=== PATIENT | female | born 1975 | race Caucasian/White ===

== ENCOUNTER 2016-12-20 13:04 | Emergency (ER) | payer MEDICAID ==
[2016-12-20 13:16] VITALS: BP 153/77
[2016-12-20] MEDS ORDERED: DEXAMETHASONE 10 MG/ML VIAL PO STA (13:51)
[2016-12-20] MEDS ORDERED: KETOROLAC 60 MG/2 ML VIAL IM STA (13:51)
[2016-12-20] MEDS ORDERED: KETOROLAC 60 MG/2 ML VIAL ONE (13:52)
[2016-12-20] MEDS ORDERED: DEXAMETHASONE 10 MG/ML VIAL ONE (13:52)
--- NOTE | 2016-12-20 13:55 | ED Physician Documentation ---
History of Present Illness - Stated complaint Stated Complaint: R ARM/ELBOW PX - Chief complaint Chief Complaint: Ext Problem - History obtained from History obtained from: Patient - History of Present Illness Timing: Other (intermittent for several months) Pain level max: 5 Pain level now: 3 Improved by: rest Worsened by: moving - Additonal information Additional information: Patient is a 41-year-old female who presents to the emergency department with right arm pain for the past few months. This is located in the elbow. Occasionally gets shooting pain down the arm. She states that her right pinky has been numb for several months and has had nerve conduction studies which have been normal. She tried to see her doctor today, but was unable to get in to be evaluated. She did take 1 oxycodone at home. Otherwise has not taken any medications for this. Denies any trauma. Denies any fevers. 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 - Present Medications Home Medications: Ambulatory Orders Medication Instructions Recorded Confirmed Ferrous Sulfate 325 mg PO DAILY 12/20/16 12/20/16 Ibuprofen [Motrin] 800 mg PO Q8H PRN #30 tablet 12/20/16 Levothyroxine [Synthroid] 75 mcg PO QDAC 12/20/16 12/20/16 Sertraline HCl [Zoloft] 150 mg PO DAILY 12/20/16 12/20/16 - Allergies Allergies/Adverse Reactions: Allergies Allergy/AdvReac Type Severity Reaction Status Date / Time No Known Drug Allergies Allergy Verified 12/20/16 13:16 - Social History Does the pt smoke?: No Smoking Status: Never smoker - Immunizations Immunizations are current?: Yes PD ED PE NORMAL - Vitals Vital signs reviewed: Yes - General General: Alert and oriented X 3, No acute distress - Derm Derm: Warm and dry - Extremities Extremities: Other (R elbow - No tenderness palpation on examination. She does have pain with flexion and extension as well as pronation and supination. Neurovascularly intact. No tenderness over the ulnar nerve. ) - Neuro Neuro: Alert and oriented X 3 - Psych Psych: Normal mood, Normal affect Results - Vitals Vitals: Vital Signs - 24 hr 12/20/16 13:13 Temperature 36.1 C L Heart Rate 109 H Respiratory 18 Rate Blood Pressure 153/77 H O2 Saturation 100 Oxygen O2 Source Room air PD MEDICAL DECISION MAKING - ED course Complexity details: considered differential, d/w patient ED course: Patient is a 41-year-old female with elbow pain of unclear etiology. Possible bursitis? Possible ulnar nerve entrapment? Will place on steroids and anti- inflammatories for home and have her follow-up with her doctor. Encouraged gentle stretching and range of motion to increase her range of motion as this could be contributing to her pain as well since she has not been using the arm much. Patient counseled regarding signs and symptoms for which I believe and urgent re-evaluation would be necessary. Patient with good understanding of and agreement to plan and is comfortable going home at this time This document was made in part using voice recognition software. While efforts are made to proofread this document, sound alike and grammatical errors may occur. Departure - Departure Disposition: 01 Home, Self Care Clinical Impression: Elbow pain, right Condition: Good Instructions: ED Bursitis Follow-Up: Ree Chan DO [Primary Care Provider] - Within 1 week Prescriptions: Ibuprofen [Motrin] 800 mg PO Q8H PRN #30 tablet PRN Reason: PAIN &/OR FEVER Comments: Return if you worsen. Continue to gently move your arm at home.
== END 2016-12-20 14:00 | disposition home or self-care (01) ==
LOC: ED 13:04
DX: M25.521 Pain in right elbow (principal); E03.9 Hypothyroidism, unspecified
CPT/HCPCS: 96372; 99283

== ENCOUNTER 2018-08-17 17:56 | Emergency (ER) | payer MEDICAID, OTHER ==
[2018-08-17 18:23] VITALS: BP 143/88
[2018-08-17] MEDS ORDERED: LIDOCAINE 1% 2 ML VIAL SUBQ ONE (18:49)
[2018-08-17] MEDS ORDERED: cefTRIAXone 250 MG VIAL IM STA (18:49)
[2018-08-17] MEDS ORDERED: AZITHROMYCIN 250 MG TABLET PO STA (18:49)
[2018-08-17] MEDS ORDERED: metroNIDAZOLE 250 MG TABLET PO STA (18:49)
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
[2018-08-19 10:56] LABS: HEPATITIS C ANTIBODY NON-REACTIVE (NON-REACTIVE)
[2018-08-19 13:07] LABS: HIV AG/AB 4TH GEN NON-REACTIVE (NON-REACTIVE)
== END 2018-08-17 20:35 | disposition home or self-care (01) ==
LOC: ED 17:56
DX: T74.21XA Adult sexual abuse, confirmed, initial encounter (principal); Y07.59 Other non-family member, perpetrator of maltreatment and neglect; E03.9 Hypothyroidism, unspecified; Z98.51 Tubal ligation status
CPT/HCPCS: 0133C; 36415; 86317; 86803; 87389; 96372; 99283; A9270

== ENCOUNTER 2019-02-02 13:30 | Outpatient (CLI) | payer MEDICAID | END 2019-02-02 13:31 | disposition EMS.NT | LOC: EMS 13:30 | PROVIDERS: ATTEND Surgery | DX: Z03.89 Encounter for observation for other suspected diseases and conditions ruled out (principal) ==

== ENCOUNTER 2019-02-03 15:20 | Emergency (ER) | payer MEDICAID ==
[2019-02-03 15:28] VITALS: BP 141/89
--- NOTE | 2019-02-03 15:44 | ED Physician Documentation ---
History of Present Illness - Stated complaint Stated Complaint: MCKINNEY/BP CHECK - Chief complaint Chief Complaint: General - History obtained from History obtained from: Patient - Additonal information Additional information: Patient is a 43-year-old female presenting to the ED with request for blood pressure check. Patient believes she has had elevated blood pressures recently and has scheduled follow-up appointment with primary care physician for such later this month. Patient denies associated symptoms including headache, vision changes, chest pain, difficulty breathing, cough, fever, abdominal pain, nausea, vomiting, urinary changes, stool changes, pedal edema. No other improving or worsening factors noted. 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 - Present Medications Home Medications: Ambulatory Orders Medication Instructions Recorded Confirmed Ferrous Sulfate 325 mg PO DAILY 12/20/16 08/17/18 Levothyroxine [Synthroid] 75 mcg PO QDAC 12/20/16 08/17/18 Sertraline HCl [Zoloft] 150 mg PO DAILY 12/20/16 08/17/18 busPIRone [Buspar] 7.5 mg PO BID 02/03/19 02/03/19 - Allergies Allergies/Adverse Reactions: Allergies Allergy/AdvReac Type Severity Reaction Status Date / Time No Known Drug Allergies Allergy Verified 02/03/19 15:27 - Social History Does the pt smoke?: No Smoking Status: Never smoker Does the pt drink ETOH?: No Does the pt have substance abuse?: No - Immunizations Immunizations are current?: Yes - POLST Patient has POLST: No PD ED PE NORMAL - Vitals Vital signs reviewed: Yes - General General: Alert and oriented X 3, No acute distress, Well developed/nourished - HEENT HEENT: Atraumatic, PERRL (Gross visual acuity intact. No nystagmus.), EOMI, Moist mucous membranes - Neck Neck: Supple, no meningeal sign - Cardiac Cardiac: RRR, No murmur - Respiratory Respiratory: No respiratory distress, Clear bilaterally - Abdomen Abdomen: Soft, Non tender, Non distended - Derm Derm: Normal color, Warm and dry, No rash - Extremities Extremities: No deformity, No tenderness to palpate, No edema - Neuro Neuro: Alert and oriented X 3, No motor deficit, No sensory deficit - Psych Psych: Normal mood, Normal affect Results - Vitals Vitals: Vital Signs - 24 hr 02/03/19 15:26 Temperature 35.9 C L Heart Rate 81 Respiratory 18 Rate Blood Pressure 141/89 H O2 Saturation 99 Oxygen O2 Source Room air PD MEDICAL DECISION MAKING - ED course Complexity details: considered differential, d/w patient ED course: Patient presenting with request for blood pressure check. Patient's blood pressure 141/89.Patient reports that she is completely asymptomatic. At this time, have low suspicion for stroke, PE, ACS, unstable angina, DE, dissection, aneurysm, systemic illness or other infection. Physical exam is benign and do not find evidence of trauma, neurological deficit, or infectious process. Do not feel patient requires further invasive testing, imaging, consult at this time. Advised on journaling of blood pressures at home. Patient already has primary care follow-up arranged. Advised on other supportive cares, return precautions and follow-up. Patient voiced understanding and is comfortable discharge plan. Departure - Departure Disposition: 01 Home, Self Care Clinical Impression: Blood pressure check Condition: Good Instructions: ED Hypertension Poss Follow-Up: Ree Chan DO [Primary Care Provider] - Within 3 Days Comments: Please continue home medications as previously instructed. May take blood pressure measurements at home regularly if possible. If not, do not stress about this. Please follow-up with your primary care physician as scheduled later this month. Return to the ED sooner if experience worsening symptoms or have other concerns.
== END 2019-02-03 15:53 | disposition home or self-care (01) ==
LOC: ED 15:20
DX: Z01.30 Encounter for examination of blood pressure without abnormal findings (principal)
CPT/HCPCS: 99281; 99282

== ENCOUNTER 2019-03-29 11:22 | Emergency (ER) | payer MEDICARE, BC ==
[2019-03-29 11:30] VITALS: BP 140/80
[2019-03-29] MEDS ORDERED: predniSONE 20 MG TABLET PO STA (11:54)
--- NOTE | 2019-03-29 11:56 | ED Physician Documentation ---
History of Present Illness - Stated complaint Stated Complaint: FACIAL DROOP/DROOLING - Chief complaint Chief Complaint: Neuro - Additonal information Additional information: This is a 43-year-old female who presents with right-sided facial droop which has been present for 48 hours. Patient states that she began having some slight drooling out of her right corner of her mouth on Tuesday, and she noticed she could not move her face as well on the right side. This has gotten slightly worse yesterday, so she presents today for evaluation. She denies any numbness on her face or elsewhere, no weakness of her arms or legs, her gait has been no rmal, and she denies any confusion. She has no headache, she has not hit her head. 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 - Present Medications Home Medications: Ambulatory Orders Medication Instructions Recorded Confirmed Ferrous Sulfate 325 mg PO DAILY 12/20/16 08/17/18 Levothyroxine [Synthroid] 75 mcg PO QDAC 12/20/16 08/17/18 Sertraline HCl [Zoloft] 150 mg PO DAILY 12/20/16 08/17/18 busPIRone [Buspar] 7.5 mg PO BID 02/03/19 02/03/19 Erythromycin Base [Erythromycin 3.5 gm TOP BID 14 Days #1 tube 03/29/19 Ophthalmic Ointment] Valacyclovir HCl [Valacyclovir] 1,000 mg PO TID 7 Days #21 tablet 03/29/19 predniSONE [Prednisone] 60 mg PO DAILY #18 tablet 03/29/19 - Allergies Allergies/Adverse Reactions: Allergies Allergy/AdvReac Type Severity Reaction Status Date / Time No Known Drug Allergies Allergy Verified 03/29/19 11:26 - Social History Does the pt smoke?: No Smoking Status: Never smoker Does the pt drink ETOH?: No Does the pt have substance abuse?: No - Immunizations Immunizations are current?: Yes - POLST Patient has POLST: No PD ED PE NORMAL - Vitals Vital signs reviewed: Yes - General General: Alert and oriented X 3, No acute distress - HEENT HEENT: PERRL - Neck Neck: Supple, no meningeal sign - Cardiac Cardiac: RRR, No murmur - Respiratory Respiratory: Clear bilaterally - Abdomen Abdomen: Normal bowel sounds, Soft, Non tender, Non distended - Derm Derm: Warm and dry - Extremities Extremities: No deformity - Neuro Neuro: Alert and oriented X 3, No sensory deficit, Normal speech, Other (Patient has a facial droop on the right, and weakness with closing her eyes on the right, however her lid does closed when she squeezes her eye. She has reduced eyebrow raise on the right as well. Sensation is intact light touch over her face and symmetric. 5/5 strength with hand squeeze, finger abduction, elbow flexion and extension, shoulder abduction, hip flexion, ankle dorsiflexion and plantarflexion. Normall, narrow based gait. No dysmetria on FTN testing.) - Psych Psych: Normal mood, Normal affect Results - Vitals Vitals: Vital Signs - 24 hr 03/29/19 11:26 Temperature 36.6 C Heart Rate 85 Respiratory 16 Rate Blood Pressure 140/80 H O2 Saturation 98 Oxygen O2 Source Room air PD MEDICAL DECISION MAKING - ED course Complexity details: considered differential (Hernandez's palsy, stroke, migraine, ICH) ED course: Patient presents with a isloted right facial weakness with no other neurologic symptoms. This appears to be a Hernandez's palsy, her risk factors and exam make stroke extremely unlikely. No history to suggest ICH. I discussed treatment with steroids and anti-virals and the first dose of these was given here in the ED. I recommended close PCP follow up and immediate return to the ED with any new symptoms such as weakness elsewhere. Ocular care discussed. Patient agrees and was discharged. Departure - Departure Disposition: 01 Home, Self Care Clinical Impression: Hernandez's palsy Condition: Good Instructions: ED [place] Palsy Follow-Up: Ree Chan DO [Primary Care Provider] - Prescriptions: Erythromycin Base [Erythromycin Ophthalmic Ointment] 3.5 gm TOP BID 14 Days #1 tube predniSONE [Prednisone] 60 mg PO DAILY #18 tablet Valacyclovir HCl [Valacyclovir] 1,000 mg PO TID 7 Days #21 tablet Comments: You were seen today for weakness in the right face, this appears to be a Hernandez's palsy. Please take the steroid and the antiviral medication which was prescribed. Apply the erythromycin ointment to right eye keep it moist, you should also tape your eye shut at night to prevent it from drying out to be irritated. Follow-up with your primary care provider as soon as possible. If you develop new weakness, numbness, or any other concerning symptoms return to the emergency department Discharge Date/Time: 03/29/19 12:13
[2019-03-29] MEDS ORDERED: valACYclovir 500 MG TABLET PO SCH ×2 (13:00→14:00)
== END 2019-03-29 12:13 | disposition home or self-care (01) ==
LOC: ED 11:22
DX: G51.0 Bell's palsy (principal)
CPT/HCPCS: 99283; 99284; A9270; J7512

== ENCOUNTER 2020-03-24 13:30 | Outpatient (CLI) | payer MEDICAID ==
[2020-03-24 13:56] LABS: BASOPHILS % (AUTO) 0.5 %; EOSINOPHILS # (AUTO) 0.2 10^3/uL (0.0-0.7); EOSINOPHILS % (AUTO) 2.8 %; HGB - HEMOGLOBIN 12.8 g/dL (12.0-16.0); LYMPHOCYTES # (AUTO) 2.1 10^3/uL (1.5-3.5); LYMPHOCYTES % (AUTO) 27.9 %; MEAN CORPUSCULAR HEMOGLOBIN 24.2 pg (27.0-31.0); MEAN CORPUSCULAR HGB CONC 30.8 g/dL (32.0-36.0); MEAN CORPUSCULAR VOLUME 78.6 fL (81.0-99.0); MEAN PLATELET VOLUME 10.5 fL (7.9-10.8); MONOCYTES # (AUTO) 0.5 10^3/uL (0.0-1.0); MONOCYTES % (AUTO) 6.4 %; NEUTROPHILS # (AUTO) 4.6 10^3/uL (1.5-6.6); PLT - PLATELET COUNT 323 10^3/uL (130-450); RED BLOOD COUNT 5.29 10^6/uL (4.20-5.40); RED CELL DISTRIBUTION WIDTH 14.6 % (12.0-15.0); WHITE BLOOD COUNT 7.4 x10^3/uL (4.8-10.8)
[2020-03-24 14:18] LABS: ALBUMIN 4.2 g/dL (3.2-5.5); ALBUMIN/GLOBULIN RATIO 1.1 (1.0-2.2); ALKALINE PHOSPHATASE 87 IU/L (42-121); ALT ALANINE AMINOTRANSFERASE 20 IU/L (10-60); AST ASPARTATE AMINOTRANSFERASE 23 IU/L (10-42); BILIRUBIN,TOTAL 0.6 mg/dL (0.2-1.0); BUN - BLOOD UREA NITROGEN 10 mg/dL (6-20); CALCIUM 9.1 mg/dL (8.5-10.3); CARBON DIOXIDE - CO2 26 mmol/L (21-32); CHLORIDE 99 mmol/L (101-111); CHOL/HDL RATIO 4.7 (<4.4); CHOLESTEROL 244 mg/dL; CREATININE 0.7 mg/dL (0.4-1.0); GLUCOSE 115 mg/dL (70-100); HDL CHOLESTEROL 52 mg/dL; LDL CHOLESTEROL,CALCULATED 161 mg/dL; LDL/HDL RATIO 3.1 (<4.4); SODIUM 136 mmol/L (135-145); TOTAL PROTEIN 8.1 g/dL (6.7-8.2); VLDL CHOLESTEROL 31 mg/dL
== END 2020-03-24 13:31 | disposition home or self-care (01) ==
LOC: LAB 13:30
PROVIDERS: ATTEND Family Medicine
DX: I10 Essential (primary) hypertension (principal); E03.9 Hypothyroidism, unspecified; D50.9 Iron deficiency anemia, unspecified; E16.2 Hypoglycemia, unspecified
CPT/HCPCS: 36415; 80053; 80061; 83721; 84443; 85025

== ENCOUNTER 2021-04-13 18:58 | Outpatient (CLI) | payer MEDICAID ==
--- NOTE | 2021-04-14 08:25 | Ultrasound Report ---
PROCEDURE: Abdomen Complete INDICATIONS: ABDOMINAL PAIN TECHNIQUE: Real-time scanning was performed of the abdominal and retroperitoneal organs, with image documentatio n. COMPARISON: None. FINDINGS: Liver: The liver demonstrates diffusely increased echotexture without focal abnormalities which is c onsistent with chronic hepatocellular disease/hepatic steatosis. Gallbladder: There is a single prominent gallstone measuring 2.5 cm in size. There is gallbladder wal l thickening measuring up to 4 mm in thickness. No pericholecystic fluid. 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 Biliary ducts: Intrahepatic bile ducts are non-dilated. Extrahepatic bile duct caliber measures 4 m m. Normal is 6-7 mm or less in diameter, or 10 mm or less post-cholecystectomy. Pancreas: Pancreas not visualized secondary to overlying bowel gas. Spleen: Spleen is borderline enlarged in size at 13.3 cm with homogeneous echotexture. Kidneys: Kidneys are normal in size and echotexture. Right kidney measures 11.3 cm long; left kidne y measures 10.9 cm long. No hydronephrosis or nephrolithiasis. No solid masses. Aorta: Visualized aorta is normal in caliber at less than 3 cm. Iliacs: Proximal common iliac arteries are normal in caliber at less than 2.5 cm. IVC: Intrahepatic inferior vena cava is patent. Miscellaneous: No free abdominal fluid. IMPRESSION: 1. Cholelithiasis with associated gallbladder wall thickening. Findings may represent acute versus ch ronic cholecystitis. No pericholecystic fluid. Consider further evaluation with nuclear medicine HIDA scan. 2. Findings suggestive of mild hepatic steatosis versus chronic hepatocellular disease. 3. Borderline splenomegaly. Reviewed by: Jonathan Doherty MD on 04/14/2021 8:23 AM PDT Approved by: Jonathan Doherty MD on 04/14/2021 8:23 AM PDT Station ID: [id number]
== END 2021-04-13 18:59 | disposition home or self-care (01) ==
LOC: DI 18:58
PROVIDERS: ATTEND Registered Nurse
DX: K80.20 Calculus of gallbladder without cholecystitis without obstruction (principal)

== ENCOUNTER 2021-12-25 20:03 | Outpatient (CLI) | payer MEDICAID | END 2021-12-25 20:04 | disposition critical access hospital (66) | LOC: EMS 20:03 | DX: U07.1 COVID-19 (principal) | CPT/HCPCS: A0425; A0429 ==

== ENCOUNTER 2021-12-25 20:34 | Emergency (ER) | payer MEDICAID ==
--- OUTSIDE RECORDS SUMMARY | 2021-12-25 21:04 | EXTERNAL MEDICAL SUMMARY RPT | Continuity of Care Document ---
:1976 Author Organization [facility] Address [address] [place] [address] Phone Allergies No information. Encounters No information. Functional Status No information. Immunizations No information. Medications No information. Problems No information. Procedures date description facility [id number] [facility] Results/Labs test date author facility value unit interpret ation Result panel 1 (unknown) (no (unknown) (unknown) (no value) (units (unk nown) date) unknown) (unknown) (no (unknown) (unknown) Orders: (units (unkno wn) date) unknown) (unknown) (no (unknown) (unknown) (no value) (units (unk nown) date) unknown) (unknown) (no (unknown) (unknown) [place], [place] (units ( unknown) date) [id number] unknown) (unknown) (no (unknown) (unknown) Diabetes (units (unkno wn) date) mellitus unknown) (unknown) (no (unknown) (unknown) Draft (units (unkno wn) date) unknown) (unknown) (no (unknown) (unknown) Family Practice (units (unknown) date) Office Visit unknown) (unknown) (no (unknown) (unknown) [facility] ([facility] unknown) (unknown) (no (unknown) (unknown) High cholesterol (units (unknown) date) unknown) (unknown) (no (unknown) (unknown) Hypertension (units (u nknown) date) unknown) (unknown) (no (unknown) (unknown) Obesity (units (unkno wn) date) unknown) (unknown) (no (unknown) (unknown) Stroke (units (unkno wn) date) unknown) (unknown) (no (unknown) (unknown) (no value) (units (unk nown) date) unknown) (unknown) (no (unknown) (unknown) [id number] (units (unkno wn) date) unknown) (unknown) (no (unknown) (unknown) 10/02/21 (units (unkno wn) date) unknown) (unknown) (no (unknown) (unknown) Abdominal pain (units (unknown) date) unknown) (unknown) (no (unknown) (unknown) Abnormal Pap (units (u nknown) date) smear of cervix unknown) (-2013) (unknown) (no (unknown) (unknown) Age/Sex: 45 / F (units (unknown) date) Date of unknown) Service: (unknown) (no (unknown) (unknown) Allergies (units (unkn own) date) unknown) (unknown) (no (unknown) (unknown) Anemia (units (unkno wn) date) unknown) (unknown) (no (unknown) (unknown) Anemia, (units (unkno wn) date) unspecified unknown) (unknown) (no (unknown) (unknown) Anesthesia (units (unk nown) date) unknown) (unknown) (no (unknown) (unknown) Ankle pain (units (unk nown) date) () unknown) (unknown) (no (unknown) (unknown) Anxiety (units (unkno wn) date) unknown) (unknown) (no (unknown) (unknown) Assessment + (units (u nknown) date) Plan unknown) (unknown) (no (unknown) (unknown) Attending Dr: (units ( unknown) date) Stefanie Kohli MD unknown) (unknown) (no (unknown) (unknown) Hernandez's palsy (units (u nknown) date) unknown) (unknown) (no (unknown) (unknown) Brother No (units (unknown) date) problems noted. unknown) (unknown) (no (unknown) (unknown) Chickenpox (units (unk nown) date) unknown) (unknown) (no (unknown) (unknown) Chief Complaint (units (unknown) date) unknown) (unknown) (no (unknown) (unknown) Chief Complaint: (units (unknown) date) medication review unknown) and follow-up (unknown) (no (unknown) (unknown) Chronic back (units (u nknown) date) pain unknown) (unknown) (no (unknown) (unknown) : 1975 (units (unknown) date) Acct:[id number] unknown) (unknown) (no (unknown) (unknown) Chace is a 45 yo (units (unknown) date) lady with a hx of unknown) MMP including HTN, and hypothyroidism (unknown) (no (unknown) (unknown) Depression (units (unk nown) date) unknown) (unknown) (no (unknown) (unknown) Dept at (units (unkno wn) date) . unknown) (unknown) (no (unknown) (unknown) Details: (units (unkno wn) date) unknown) (unknown) (no (unknown) (unknown) Diarrhea (units (unkno wn) date) unknown) (unknown) (no (unknown) (unknown) Documented By: (units (unknown) date) Stefanie Kohli MD unknown) 10/02/21 1336 (unknown) (no (unknown) (unknown) Dyslexia (units (unkno wn) date) unknown) (unknown) (no (unknown) (unknown) Essential (units (unkn own) date) hypertension unknown) (unknown) (no (unknown) (unknown) Family History (units (unknown) date) (Reviewed unknown) 07/29/21 @ 10:43 by Harjit Perry MD) (unknown) (no (unknown) (unknown) Father No (units (unknown) date) problems noted. 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 (-1989) (unknown) (no (unknown) (unknown) Hearing deficit (units (unknown) date) unknown) (unknown) (no (unknown) (unknown) History of ankle (units (unknown) date) surgery () unknown) (unknown) (no (unknown) (unknown) History of (units (unk nown) date) section unknown) (unknown) (no (unknown) (unknown) History of (units (unk nown) date) frequent unknown) headaches (unknown) (no (unknown) (unknown) History of third (units (unknown) date) molar tooth unknown) extraction (-2000) (unknown) (no (unknown) (unknown) Hyperlipidemia (units (unknown) date) unknown) (unknown) (no (unknown) (unknown) Hypothyroidism (units (unknown) date) () unknown) (unknown) (no (unknown) (unknown) IBS (irritable (units (unknown) date) bowel syndrome) unknown) () (unknown) (no (unknown) (unknown) Intake (units (unkno wn) date) unknown) (unknown) (no (unknown) (unknown) Irregular (units (unkn own) date) heartbeat unknown) (unknown) (no (unknown) (unknown) Loc: [facility] (units (unkno wn) date) unknown) (unknown) (no (unknown) (unknown) MM screening (units (u nknown) date) mammo BI 10/01/21 unknown) Z12.31 - Encounter for screening mammogram for (unknown) (no (unknown) (unknown) Medical History (units (unknown) date) (Reviewed unknown) 07/29/21 @ 10:43 by Harjit Perry MD) (unknown) (no (unknown) (unknown) Mother Age: 68 (units (unknown) date) Atrial unknown) fibrillation (unknown) (no (unknown) (unknown) No Known Drug (units ( unknown) date) Allergies Allergy unknown) (Verified 07/29/21 10:12) (unknown) (no (unknown) (unknown) KULDIP on CPAP (units (un known) date) unknown) (unknown) (no (unknown) (unknown) Orders (units (unkno wn) date) unknown) (unknown) (no (unknown) (unknown) PFSH (units (unkno wn) date) unknown) (unknown) (no (unknown) (unknown) PTSD (units (unkno wn) date) (post-traumatic unknown) stress disorder) (unknown) (no (unknown) (unknown) Patient: (units (unkno wn) date) Chace Harvey M unknown) MR#: [id number] (unknown) (no (unknown) (unknown) Pre-diabetes (units (u nknown) date) unknown) (unknown) (no (unknown) (unknown) Reason For Visit (units (unknown) date) unknown) (unknown) (no (unknown) (unknown) Signed By: (units (unk nown) date) unknown) (unknown) (no (unknown) (unknown) Sleep apnea (units (un known) date) (-2016) unknown) (unknown) (no (unknown) (unknown) Smoking Status: (units (unknown) date) Never smoker unknown) (unknown) (no (unknown) (unknown) Social History (units (unknown) date) unknown) (unknown) (no (unknown) (unknown) Status post (units (un known) date) tubal ligation unknown) (-2003) (unknown) (no (unknown) (unknown) Surgical History (units (unknown) date) (Reviewed unknown) 07/29/21 @ 10:43 by Harjit Perry MD) (unknown) (no (unknown) (unknown) This note may (units ( unknown) date) have been all or unknown) partially generated using voice recognition (unknown) (no (unknown) (unknown) Tobacco + (units (unkn own) date) Substance Use unknown) (unknown) (no (unknown) (unknown) Tobacco Status (units (unknown) date) unknown) (unknown) (no (unknown) (unknown) Ulnar neuropathy (units (unknown) date) unknown) (unknown) (no (unknown) (unknown) Visit Reasons: (units (unknown) date) Med review and unknown) follow up 04 (unknown) (no (unknown) (unknown) alcohol intake: (units (unknown) date) never unknown) (unknown) (no (unknown) (unknown) have occurred. (units (unknown) date) If there are any unknown) questions, please contact the Medical Records (unknown) (no (unknown) (unknown) household (units (unkn own) date) members: other unknown) (unknown) (no (unknown) (unknown) malignant (units (unkn own) date) neoplasm of unknown) breast (unknown) (no (unknown) (unknown) may occur. (units (unk nown) date) Occasional unknown) wrong-word or 'sound-alike' substitutions may have (unknown) (no (unknown) (unknown) occurred due to (units (unknown) date) the inherent unknown) limitations of voice recognition software. Please (unknown) (no (unknown) (unknown) read the note (units ( unknown) date) carefully and unknown) recognize, using context, where these substitutions (unknown) (no (unknown) (unknown) software. (units (unkn own) date) Although every unknown) effort is made to edit content, manager union errors Result panel 2 (unknown) (no (unknown) (unknown) (no value) (units (unk nown) date) unknown) (unknown) (no (unknown) (unknown) Orders: (units (unkno wn) date) unknown) (unknown) (no (unknown) (unknown) (no value) (units (unk nown) date) unknown) (unknown) (no (unknown) (unknown) (no value) (units (unk nown) date) unknown) (unknown) (no (unknown) (unknown) 10/02/21 (units (unkno wn) date) unknown) (unknown) (no (unknown) (unknown) 13:46 (units (unkno wn) date) unknown) (unknown) (no (unknown) (unknown) [place], [place] (units ( unknown) date) [id number] unknown) (unknown) (no (unknown) (unknown) Diabetes (units (unkno wn) date) mellitus unknown) (unknown) (no (unknown) (unknown) Draft (units (unkno wn) date) unknown) (unknown) (no (unknown) (unknown) Family Practice (units (unknown) date) Office Visit unknown) (unknown) (no (unknown) (unknown) [facility]) (unknown) (no (unknown) (unknown) High cholesterol (units (unknown) date) unknown) (unknown) (no (unknown) (unknown) Hypertension (units (u nknown) date) unknown) (unknown) (no (unknown) (unknown) Obesity (units (unkno wn) date) unknown) (unknown) (no (unknown) (unknown) Stroke (units (unkno wn) date) unknown) (unknown) (no (unknown) (unknown) (no value) (units (unk nown) date) unknown) (unknown) (no (unknown) (unknown) [id number] (units (unkno wn) date) unknown) (unknown) (no (unknown) (unknown) 10/02/21 (units (unkno wn) date) unknown) (unknown) (no (unknown) (unknown) Abdominal pain (units (unknown) date) unknown) (unknown) (no (unknown) (unknown) Abnormal Pap (units (u nknown) date) smear of cervix unknown) () (unknown) (no (unknown) (unknown) Age/Sex: 45 / F (units (unknown) date) Date of unknown) Service: (unknown) (no (unknown) (unknown) Allergies (units (unkn own) date) unknown) (unknown) (no (unknown) (unknown) Anemia (units (unkno wn) date) unknown) (unknown) (no (unknown) (unknown) Anemia, (units (unkno wn) date) unspecified unknown) (unknown) (no (unknown) (unknown) Anesthesia (units (unk nown) date) unknown) (unknown) (no (unknown) (unknown) Ankle pain (units (unk nown) date) () unknown) (unknown) (no (unknown) (unknown) Anxiety (units (unkno wn) date) unknown) (unknown) (no (unknown) (unknown) Assessment + (units (u nknown) date) Plan unknown) (unknown) (no (unknown) (unknown) Attending Dr: (units ( unknown) date) Stefanie Kohli MD unknown) (unknown) (no (unknown) (unknown) BMI 41.5 (units (un known) date) unknown) (unknown) (no (unknown) (unknown) BP 120/80 (units (u nknown) date) unknown) (unknown) (no (unknown) (unknown) Hernandez's palsy (units (u nknown) date) unknown) (unknown) (no (unknown) (unknown) Blood Pressure (units (unknown) date) Location Lt unknown) brachial (unknown) (no (unknown) (unknown) Brother No (units (unknown) date) problems noted. unknown) (unknown) (no (unknown) (unknown) Chickenpox (units (unk nown) date) unknown) (unknown) (no (unknown) (unknown) Chief Complaint (units (unknown) date) unknown) (unknown) (no (unknown) (unknown) Chief Complaint: (units (unknown) date) medication review unknown) and follow-up (unknown) (no (unknown) (unknown) Chronic back (units (u nknown) date) pain unknown) (unknown) (no (unknown) (unknown) : 1975 (units (unknown) date) Acct:[id number] unknown) (unknown) (no (unknown) (unknown) Chace is a 45 yo (units (unknown) date) lady with a hx of unknown) MMP including HTN, and hypothyroidism (unknown) (no (unknown) (unknown) Depression (units (unk nown) date) unknown) (unknown) (no (unknown) (unknown) Dept at (units (unkno wn) date) . unknown) (unknown) (no (unknown) (unknown) Details: (units (unkno wn) date) unknown) (unknown) (no (unknown) (unknown) Diarrhea (units (unkno wn) date) unknown) (unknown) (no (unknown) (unknown) Documented By: (units (unknown) date) Stefanie Kohli MD unknown) 10/02/21 1336 (unknown) (no (unknown) (unknown) Dyslexia (units (unkno wn) date) unknown) (unknown) (no (unknown) (unknown) Essential (units (unkn own) date) hypertension unknown) (unknown) (no (unknown) (unknown) Family History (units (unknown) date) (Reviewed unknown) 07/29/21 @ 10:43 by Harjit Perry MD) (unknown) (no (unknown) (unknown) Father No (units (unknown) date) problems noted. 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 () (unknown) (no (unknown) (unknown) Hearing deficit (units (unknown) date) unknown) (unknown) (no (unknown) (unknown) Height 5 ft 4 (units (unknown) date) in unknown) (unknown) (no (unknown) (unknown) History of ankle (units (unknown) date) surgery () unknown) (unknown) (no (unknown) (unknown) History of (units (unk nown) date) section unknown) (unknown) (no (unknown) (unknown) History of (units (unk nown) date) frequent unknown) headaches (unknown) (no (unknown) (unknown) History of third (units (unknown) date) molar tooth unknown) extraction () (unknown) (no (unknown) (unknown) Hyperlipidemia (units (unknown) date) unknown) (unknown) (no (unknown) (unknown) Hypothyroidism (units (unknown) date) () unknown) (unknown) (no (unknown) (unknown) IBS (irritable (units (unknown) date) bowel syndrome) unknown) () (unknown) (no (unknown) (unknown) Intake (units (unkno wn) date) unknown) (unknown) (no (unknown) (unknown) Irregular (units (unkn own) date) heartbeat unknown) (unknown) (no (unknown) (unknown) Loc: [facility] (units (unkno wn) date) unknown) (unknown) (no (unknown) (unknown) MM screening (units (u nknown) date) mammo BI 10/01/21 unknown) Z12.31 - Encounter for screening mammogram for (unknown) (no (unknown) (unknown) Medical History (units (unknown) date) (Reviewed unknown) 07/29/21 @ 10:43 by Harjit Perry MD) (unknown) (no (unknown) (unknown) Mother Age: 68 (units (unknown) date) Atrial unknown) fibrillation (unknown) (no (unknown) (unknown) No Known Drug (units ( unknown) date) Allergies Allergy unknown) (Verified 07/29/21 10:12) (unknown) (no (unknown) (unknown) KULDIP on CPAP (units (un known) date) unknown) (unknown) (no (unknown) (unknown) Orders (units (unkno wn) date) unknown) (unknown) (no (unknown) (unknown) Oxygen Delivery (units (unknown) date) Method room unknown) air (unknown) (no (unknown) (unknown) PFSH (units (unkno wn) date) unknown) (unknown) (no (unknown) (unknown) PTSD (units (unkno wn) date) (post-traumatic unknown) stress disorder) (unknown) (no (unknown) (unknown) Patient: (units (unkno wn) date) Chace Harvey M unknown) MR#: [id number] (unknown) (no (unknown) (unknown) Position (units (unkno wn) date) Sitting unknown) (unknown) (no (unknown) (unknown) Pre-diabetes (units (u nknown) date) unknown) (unknown) (no (unknown) (unknown) Pulse 72 (units (un known) date) unknown) (unknown) (no (unknown) (unknown) Pulse Oximetry (units (unknown) date) (%) 98 unknown) (unknown) (no (unknown) (unknown) Pulse Source (units (u nknown) date) Monitor unknown) (unknown) (no (unknown) (unknown) Reason For Visit (units (unknown) date) unknown) (unknown) (no (unknown) (unknown) Respiration (units (un known) date) 16 unknown) (unknown) (no (unknown) (unknown) Signed By: (units (unk nown) date) unknown) (unknown) (no (unknown) (unknown) Sleep apnea (units (un known) date) (-2016) unknown) (unknown) (no (unknown) (unknown) Smoking Status: (units (unknown) date) Never smoker unknown) (unknown) (no (unknown) (unknown) Social History (units (unknown) date) unknown) (unknown) (no (unknown) (unknown) Status post (units (un known) date) tubal ligation unknown) (-2003) (unknown) (no (unknown) (unknown) Surgical History (units (unknown) date) (Reviewed unknown) 07/29/21 @ 10:43 by Harjit Perry MD) (unknown) (no (unknown) (unknown) Temp 96.9 F L (units (unknown) date) unknown) (unknown) (no (unknown) (unknown) Temp Source (units (un known) date) Temporal Artery unknown) Scan (unknown) (no (unknown) (unknown) This note may (units ( unknown) date) have been all or unknown) partially generated using voice recognition (unknown) (no (unknown) (unknown) Tobacco + (units (unkn own) date) Substance Use unknown) (unknown) (no (unknown) (unknown) Tobacco Status (units (unknown) date) unknown) (unknown) (no (unknown) (unknown) Ulnar neuropathy (units (unknown) date) unknown) (unknown) (no (unknown) (unknown) Visit Reasons: (units (unknown) date) Med review and unknown) follow up 04 (unknown) (no (unknown) (unknown) Vitals (units (unkno wn) date) unknown) (unknown) (no (unknown) (unknown) Weight 242 lb (units (unknown) date) 6 oz unknown) (unknown) (no (unknown) (unknown) alcohol intake: (units (unknown) date) never unknown) (unknown) (no (unknown) (unknown) have occurred. (units (unknown) date) If there are any unknown) questions, please contact the Medical Records (unknown) (no (unknown) (unknown) household (units (unkn own) date) members: other unknown) (unknown) (no (unknown) (unknown) malignant (units (unkn own) date) neoplasm of unknown) breast (unknown) (no (unknown) (unknown) may occur. (units (unk nown) date) Occasional unknown) wrong-word or 'sound-alike' substitutions may have (unknown) (no (unknown) (unknown) occurred due to (units (unknown) date) the inherent unknown) limitations of voice recognition software. Please (unknown) (no (unknown) (unknown) read the note (units ( unknown) date) carefully and unknown) recognize, using context, where these substitutions (unknown) (no (unknown) (unknown) software. (units (unkn own) date) Although every unknown) effort is made to edit content, manager union errors Result panel 3 (unknown) (no (unknown) (unknown) (no value) (units (unk nown) date) unknown) (unknown) (no (unknown) (unknown) Orders: (units (unkno wn) date) unknown) (unknown) (no (unknown) (unknown) (no value) (units (unk nown) date) unknown) (unknown) (no (unknown) (unknown) [place], [place] (units ( unknown) date) [id number] unknown) (unknown) (no (unknown) (unknown) Diabetes mellitus (units (unknown) date) unknown) (unknown) (no (unknown) (unknown) Draft (units (unkno wn) date) unknown) (unknown) (no (unknown) (unknown) Family Practice (units (unknown) date) Office Visit unknown) (unknown) (no (unknown) (unknown) [facility]) (unknown) (no (unknown) (unknown) High cholesterol (units (unknown) date) unknown) (unknown) (no (unknown) (unknown) Hypertension (units (u nknown) date) unknown) (unknown) (no (unknown) (unknown) Obesity (units (unkno wn) date) unknown) (unknown) (no (unknown) (unknown) Stroke (units (unkno wn) date) unknown) (unknown) (no (unknown) (unknown) (no value) (units (unk nown) date) unknown) (unknown) (no (unknown) (unknown) [id number] (units (unkno wn) date) unknown) (unknown) (no (unknown) (unknown) 10/02/21 (units (unkno wn) date) unknown) (unknown) (no (unknown) (unknown) 1. Medication (units ( unknown) date) review unknown) (unknown) (no (unknown) (unknown) 2.Recent open (units ( unknown) date) cholecystectomy unknown) (unknown) (no (unknown) (unknown) Abdominal pain (units (unknown) date) unknown) (unknown) (no (unknown) (unknown) Abnormal Pap (units (u nknown) date) smear of cervix unknown) (-2013) (unknown) (no (unknown) (unknown) Age/Sex: 45 / F (units (unknown) date) Date of Service: unknown) (unknown) (no (unknown) (unknown) Allergies (units (unkn own) date) unknown) (unknown) (no (unknown) (unknown) Anemia (units (unkno wn) date) unknown) (unknown) (no (unknown) (unknown) Anemia, (units (unkno wn) date) unspecified unknown) (unknown) (no (unknown) (unknown) Anesthesia (units (unk nown) date) unknown) (unknown) (no (unknown) (unknown) Ankle pain (units (unk nown) date) () unknown) (unknown) (no (unknown) (unknown) Anxiety (units (unkno wn) date) unknown) (unknown) (no (unknown) (unknown) Assessment + Plan (units (unknown) date) unknown) (unknown) (no (unknown) (unknown) Attending Dr: (units ( unknown) date) Stefanie Kohli MD unknown) (unknown) (no (unknown) (unknown) Hernandez's palsy (units (u nknown) date) unknown) (unknown) (no (unknown) (unknown) Brother No (units (unknown) date) problems noted. unknown) (unknown) (no (unknown) (unknown) Chickenpox (units (unk nown) date) unknown) (unknown) (no (unknown) (unknown) Chief Complaint (units (unknown) date) unknown) (unknown) (no (unknown) (unknown) Chief Complaint: (units (unknown) date) medication review unknown) and follow-up (unknown) (no (unknown) (unknown) Chronic back pain (units (unknown) date) unknown) (unknown) (no (unknown) (unknown) : 1975 (units (unknown) date) Acct:[id number] unknown) (unknown) (no (unknown) (unknown) Chace is a 45 yo (units (unknown) date) lady with a hx of unknown) MMP including HTN, and hypothyroidism so she (unknown) (no (unknown) (unknown) Depression (units (unk nown) date) unknown) (unknown) (no (unknown) (unknown) Dept at (units (unkno wn) date) . unknown) (unknown) (no (unknown) (unknown) Details: (units (unkno wn) date) unknown) (unknown) (no (unknown) (unknown) Diarrhea (units (unkno wn) date) unknown) (unknown) (no (unknown) (unknown) Documented By: (units (unknown) date) Stefanie Kohli MD unknown) 10/02/21 1336 (unknown) (no (unknown) (unknown) Dyslexia (units (unkno wn) date) unknown) (unknown) (no (unknown) (unknown) Essential (units (unkn own) date) hypertension unknown) (unknown) (no (unknown) (unknown) Family History (units (unknown) date) (Reviewed 07/29/21 unknown) @ 10:43 by Harjit Perry MD) (unknown) (no (unknown) (unknown) Father No (units (unknown) date) problems noted. 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 () (unknown) (no (unknown) (unknown) Hearing deficit (units (unknown) date) unknown) (unknown) (no (unknown) (unknown) History of ankle (units (unknown) date) surgery () unknown) (unknown) (no (unknown) (unknown) History of (units (unk nown) date) section unknown) (unknown) (no (unknown) (unknown) History of (units (unk nown) date) frequent headaches unknown) (unknown) (no (unknown) (unknown) History of third (units (unknown) date) molar tooth unknown) extraction (-2000) (unknown) (no (unknown) (unknown) Hyperlipidemia (units (unknown) date) unknown) (unknown) (no (unknown) (unknown) Hypothyroidism (units (unknown) date) () unknown) (unknown) (no (unknown) (unknown) IBS (irritable (units (unknown) date) bowel syndrome) unknown) () (unknown) (no (unknown) (unknown) In retrospect, (units (unknown) date) there had been unknown) some long-standing sx that were likely subacute (unknown) (no (unknown) (unknown) Intake (units (unkno wn) date) unknown) (unknown) (no (unknown) (unknown) Irregular (units (unkn own) date) heartbeat unknown) (unknown) (no (unknown) (unknown) It was acutely (units ( unknown) date) inflamed and unknown) required open procedure and speciment to path to r/o (unknown) (no (unknown) (unknown) Loc: [facility] (units (unkno wn) date) unknown) (unknown) (no (unknown) (unknown) MM screening (units (u nknown) date) mammo BI 10/01/21 unknown) Z12.31 - Encounter for screening mammogram for (unknown) (no (unknown) (unknown) Medical History (units (unknown) date) (Reviewed 07/29/21 unknown) @ 10:43 by Harjit Perry MD) (unknown) (no (unknown) (unknown) Mother Age: 68 (units (unknown) date) Atrial unknown) fibrillation (unknown) (no (unknown) (unknown) No Known Drug (units ( unknown) date) Allergies Allergy unknown) (Verified 07/29/21 10:12) (unknown) (no (unknown) (unknown) KULDIP on CPAP (units (un known) date) unknown) (unknown) (no (unknown) (unknown) One month post-op (units (unknown) date) check with Dr. sheriff) Sherry she was doing well. (unknown) (no (unknown) (unknown) Orders (units (unkno wn) date) unknown) (unknown) (no (unknown) (unknown) PFSH (units (unkno wn) date) unknown) (unknown) (no (unknown) (unknown) PTSD (units (unkno wn) date) (post-traumatic unknown) stress disorder) (unknown) (no (unknown) (unknown) Patient: (units (unkno wn) date) Chace Harvey unknown) MR#: [id number] (unknown) (no (unknown) (unknown) Pre-diabetes (units (u nknown) date) unknown) (unknown) (no (unknown) (unknown) Reason For Visit (units (unknown) date) unknown) (unknown) (no (unknown) (unknown) She has returned (units (unknown) date) to work on Jul 06 unknown) and it's going (unknown) (no (unknown) (unknown) Signed By: (units (unk nown) date) unknown) (unknown) (no (unknown) (unknown) Sleep apnea (units (un known) date) (-2016) unknown) (unknown) (no (unknown) (unknown) Smoking Status: (units (unknown) date) Never smoker unknown) (unknown) (no (unknown) (unknown) Social History (units (unknown) date) unknown) (unknown) (no (unknown) (unknown) Status post tubal (units (unknown) date) ligation (-2003) unknown) (unknown) (no (unknown) (unknown) Surgical History (units (unknown) date) (Reviewed 07/29/21 unknown) @ 10:43 by Harjit Perry MD) (unknown) (no (unknown) (unknown) This note may (units ( unknown) date) have been all or unknown) partially generated using voice recognition (unknown) (no (unknown) (unknown) Tobacco + (units (unkn own) date) Substance Use unknown) (unknown) (no (unknown) (unknown) Tobacco Status (units (unknown) date) unknown) (unknown) (no (unknown) (unknown) Ulnar neuropathy (units (unknown) date) unknown) (unknown) (no (unknown) (unknown) Visit Reasons: (units (unknown) date) Med review and unknown) follow up 04 (unknown) (no (unknown) (unknown) alcohol intake: (units (unknown) date) never unknown) (unknown) (no (unknown) (unknown) cholecystitis. (units (unknown) date) unknown) (unknown) (no (unknown) (unknown) have occurred. (units (unknown) date) If there are any unknown) questions, please contact the Medical Records (unknown) (no (unknown) (unknown) household (units (unkn own) date) members: other unknown) (unknown) (no (unknown) (unknown) is here for (units (un known) date) unknown) (unknown) (no (unknown) (unknown) malignancy. (units (un known) date) unknown) (unknown) (no (unknown) (unknown) malignant (units (unkn own) date) neoplasm of breast unknown) (unknown) (no (unknown) (unknown) may occur. (units (unk nown) date) Occasional unknown) wrong-word or 'sound-alike' substitutions may have (unknown) (no (unknown) (unknown) occurred due to (units (unknown) date) the inherent unknown) limitations of voice recognition software. Please (unknown) (no (unknown) (unknown) read the note (units ( unknown) date) carefully and unknown) recognize, using context, where these substitutions (unknown) (no (unknown) (unknown) software. (units (unkn own) date) Although every unknown) effort is made to edit content, manager union errors Result panel 4 (unknown) (no (unknown) (unknown) (no value) (units (unk nown) date) unknown) (unknown) (no (unknown) (unknown) Orders: (units (unkno wn) date) unknown) (unknown) (no (unknown) (unknown) (no value) (units (unk nown) date) unknown) (unknown) (no (unknown) (unknown) MARCIAL [place] (units ( unknown) date) [id number] unknown) (unknown) (no (unknown) (unknown) Diabetes mellitus (units (unknown) date) unknown) (unknown) (no (unknown) (unknown) Draft (units (unkno wn) date) unknown) (unknown) (no (unknown) (unknown) Family Practice (units (unknown) date) Office Visit unknown) (unknown) (no (unknown) (unknown) [facility] ([facility] unknown) (unknown) (no (unknown) (unknown) High cholesterol (units (unknown) date) unknown) (unknown) (no (unknown) (unknown) Hypertension (units (u nknown) date) unknown) (unknown) (no (unknown) (unknown) Obesity (units (unkno wn) date) unknown) (unknown) (no (unknown) (unknown) Stroke (units (unkno wn) date) unknown) (unknown) (no (unknown) (unknown) (no value) (units (unk nown) date) unknown) (unknown) (no (unknown) (unknown) [id number] (units (unkno wn) date) unknown) (unknown) (no (unknown) (unknown) 10/02/21 (units (unkno wn) date) unknown) (unknown) (no (unknown) (unknown) 1. Medication (units ( unknown) date) review unknown) (unknown) (no (unknown) (unknown) 2.Recent open (units ( unknown) date) cholecystectomy unknown) (unknown) (no (unknown) (unknown) 3. KULDIP (units (unkno wn) date) unknown) (unknown) (no (unknown) (unknown) 4. Hypothyroid (units (unknown) date) unknown) (unknown) (no (unknown) (unknown) 5. Fe - (units (unkno wn) date) deficiency anemia unknown) (unknown) (no (unknown) (unknown) 6. Behavioral (units ( unknown) date) health - unknown) anxiety/depression (unknown) (no (unknown) (unknown) Abdominal pain (units (unknown) date) unknown) (unknown) (no (unknown) (unknown) Abnormal Pap (units (u nknown) date) smear of cervix unknown) (-2013) (unknown) (no (unknown) (unknown) Age/Sex: 45 / F (units (unknown) date) Date of Service: unknown) (unknown) (no (unknown) (unknown) Allergies (units (unkn own) date) unknown) (unknown) (no (unknown) (unknown) Anemia (units (unkno wn) date) unknown) (unknown) (no (unknown) (unknown) Anemia, (units (unkno wn) date) unspecified unknown) (unknown) (no (unknown) (unknown) Anesthesia (units (unk nown) date) unknown) (unknown) (no (unknown) (unknown) Ankle pain (units (unk nown) date) (-2016) unknown) (unknown) (no (unknown) (unknown) Anxiety (units (unkno wn) date) unknown) (unknown) (no (unknown) (unknown) Assessment + Plan (units (unknown) date) unknown) (unknown) (no (unknown) (unknown) Attending Dr: (units ( unknown) date) Stefanie Kohli MD unknown) (unknown) (no (unknown) (unknown) Hernandez's palsy (units (u nknown) date) unknown) (unknown) (no (unknown) (unknown) Brother No (units (unknown) date) problems noted. unknown) (unknown) (no (unknown) (unknown) Chickenpox (units (unk nown) date) unknown) (unknown) (no (unknown) (unknown) Chief Complaint (units (unknown) date) unknown) (unknown) (no (unknown) (unknown) Chief Complaint: (units (unknown) date) medication review unknown) and follow-up (unknown) (no (unknown) (unknown) Chronic back pain (units (unknown) date) unknown) (unknown) (no (unknown) (unknown) : 1975 (units (unknown) date) Acct:[id number] unknown) (unknown) (no (unknown) (unknown) Chace is a 45 yo (units (unknown) date) lady with a hx of unknown) MMP including HTN, and hypothyroidism so she (unknown) (no (unknown) (unknown) Depression (units (unk nown) date) unknown) (unknown) (no (unknown) (unknown) Dept at (units (unkno wn) date) . unknown) (unknown) (no (unknown) (unknown) Details: (units (unkno wn) date) unknown) (unknown) (no (unknown) (unknown) Diarrhea (units (unkno wn) date) unknown) (unknown) (no (unknown) (unknown) Documented By: (units (unknown) date) Stefanie Kohli MD unknown) 10/02/21 1336 (unknown) (no (unknown) (unknown) Dyslexia (units (unkno wn) date) unknown) (unknown) (no (unknown) (unknown) Essential (units (unkn own) date) hypertension unknown) (unknown) (no (unknown) (unknown) Exam (units (unkno wn) date) unknown) (unknown) (no (unknown) (unknown) Exam Narrative (units (unknown) date) unknown) (unknown) (no (unknown) (unknown) Exam Narrative: (units (unknown) date) unknown) (unknown) (no (unknown) (unknown) Family History (units (unknown) date) (Reviewed 10/02/21 unknown) @ 14:30 by Stefanie Kohli MD) (unknown) (no (unknown) (unknown) Father No (units (unknown) date) problems noted. unknown) (unknown) (no (unknown) (unknown) Feeling fine (units (u nknown) date) unknown) (unknown) (no (unknown) (unknown) Fracture () (units (unknown) date) unknown) (unknown) (no (unknown) (unknown) Gen (units (unkno wn) date) unknown) (unknown) (no (unknown) (unknown) Gets these (units (unk nown) date) through Behavioral unknown) Health and is seeing counselor (unknown) (no (unknown) (unknown) Grandfather (units (un known) date) Cancer unknown) (unknown) (no (unknown) (unknown) Grandmother (units (un known) date) Heart unknown) disease (unknown) (no (unknown) (unknown) 3 (units (unkn own) date) unknown) (unknown) (no (unknown) (unknown) HPI (units (unkno wn) date) unknown) (unknown) (no (unknown) (unknown) 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) unknown) infection () (unknown) (no (unknown) (unknown) Has her Rx with 3 (units (unknown) date) RF unknown) (unknown) (no (unknown) (unknown) Hearing deficit (units (unknown) date) unknown) (unknown) (no (unknown) (unknown) History of ankle (units (unknown) date) surgery () unknown) (unknown) (no (unknown) (unknown) History of (units (unk nown) date) section unknown) (unknown) (no (unknown) (unknown) History of (units (unk nown) date) frequent headaches unknown) (unknown) (no (unknown) (unknown) History of third (units (unknown) date) molar tooth unknown) extraction (-2000) (unknown) (no (unknown) (unknown) Hyperlipidemia (units (unknown) date) unknown) (unknown) (no (unknown) (unknown) Hypothyroidism (units (unknown) date) (-2013) unknown) (unknown) (no (unknown) (unknown) IBS (irritable (units (unknown) date) bowel syndrome) unknown) () (unknown) (no (unknown) (unknown) In retrospect, (units (unknown) date) there had been unknown) some long-standing sx that were likely subacute (unknown) (no (unknown) (unknown) Intake (units (unkno wn) date) unknown) (unknown) (no (unknown) (unknown) Irregular (units (unkn own) date) heartbeat unknown) (unknown) (no (unknown) (unknown) It was acutely (units ( unknown) date) inflamed and unknown) required open procedure and speciment to path to r/o (unknown) (no (unknown) (unknown) Just got new (units (u nknown) date) mattress and frame unknown) - may also help (unknown) (no (unknown) (unknown) Loc: [facility] (units (unkno wn) date) unknown) (unknown) (no (unknown) (unknown) MM screening (units (u nknown) date) mammo BI 10/01/21 unknown) Z12.31 - Encounter for screening mammogram for (unknown) (no (unknown) (unknown) Medical History (units (unknown) date) (Reviewed 10/02/21 unknown) @ 14:29 by Stefanie Kohli MD) (unknown) (no (unknown) (unknown) Mother Age: 68 (units (unknown) date) Atrial unknown) fibrillation (unknown) (no (unknown) (unknown) No Known Drug (units ( unknown) date) Allergies Allergy unknown) (Verified 07/29/21 10:12) (unknown) (no (unknown) (unknown) KULDIP on CPAP (units (un known) date) unknown) (unknown) (no (unknown) (unknown) One month post-op (units (unknown) date) check with unknown) Sherry she was doing well. (unknown) (no (unknown) (unknown) Orders (units (unkno wn) date) unknown) (unknown) (no (unknown) (unknown) PFSH (units (unkno wn) date) unknown) (unknown) (no (unknown) (unknown) PTSD (units (unkno wn) date) (post-traumatic unknown) stress disorder) (unknown) (no (unknown) (unknown) Patient: (units (unkno wn) date) Chace Harvey M unknown) MR#: [id number] (unknown) (no (unknown) (unknown) Pre-diabetes (units (u nknown) date) unknown) (unknown) (no (unknown) (unknown) ROS (units (unkno wn) date) unknown) (unknown) (no (unknown) (unknown) ROS Narrative (units ( unknown) date) unknown) (unknown) (no (unknown) (unknown) ROS Narrative: (units (unknown) date) unknown) (unknown) (no (unknown) (unknown) Reason For Visit (units (unknown) date) unknown) (unknown) (no (unknown) (unknown) She has returned (units (unknown) date) to work on Jul 06 unknown) and it's going well (unknown) (no (unknown) (unknown) She is having (units ( unknown) date) problems with her unknown) machine but they are in process of fixing it (unknown) (no (unknown) (unknown) Signed By: (units (unk nown) date) unknown) (unknown) (no (unknown) (unknown) Sleep apnea (units (un known) date) (-2015) unknown) (unknown) (no (unknown) (unknown) Smoking Status: (units (unknown) date) Never smoker unknown) (unknown) (no (unknown) (unknown) Social History (units (unknown) date) unknown) (unknown) (no (unknown) (unknown) Status post tubal (units (unknown) date) ligation (-2003) unknown) (unknown) (no (unknown) (unknown) Surgical History (units (unknown) date) (Reviewed 10/02/21 unknown) @ 14:30 by Stefanie Kohli MD) (unknown) (no (unknown) (unknown) This note may (units ( unknown) date) have been all or unknown) partially generated using voice recognition (unknown) (no (unknown) (unknown) Tobacco + (units (unkn own) date) Substance Use unknown) (unknown) (no (unknown) (unknown) Tobacco Status (units (unknown) date) unknown) (unknown) (no (unknown) (unknown) Ulnar neuropathy (units (unknown) date) unknown) (unknown) (no (unknown) (unknown) Visit Reasons: (units (unknown) date) Med review and unknown) follow up 04 (unknown) (no (unknown) (unknown) Would like (units (unk nown) date) ferrous gluconate unknown) instead (unknown) (no (unknown) (unknown) alcohol intake: (units (unknown) date) never unknown) (unknown) (no (unknown) (unknown) as per HPI (units (unk nown) date) unknown) (unknown) (no (unknown) (unknown) cholecystitis. (units (unknown) date) unknown) (unknown) (no (unknown) (unknown) have occurred. (units (unknown) date) If there are any unknown) questions, please contact the Medical Records (unknown) (no (unknown) (unknown) household (units (unkn own) date) members: other unknown) (unknown) (no (unknown) (unknown) is here for (units (un known) date) unknown) (unknown) (no (unknown) (unknown) malignancy. (units (un known) date) unknown) (unknown) (no (unknown) (unknown) malignant (units (unkn own) date) neoplasm of breast unknown) (unknown) (no (unknown) (unknown) may occur. (units (unk nown) date) Occasional unknown) wrong-word or 'sound-alike' substitutions may have (unknown) (no (unknown) (unknown) occurred due to (units (unknown) date) the inherent unknown) limitations of voice recognition software. Please (unknown) (no (unknown) (unknown) read the note (units ( unknown) date) carefully and unknown) recognize, using context, where these substitutions (unknown) (no (unknown) (unknown) software. (units (unkn own) date) Although every unknown) effort is made to edit content, manager union errors Result panel 5 (unknown) (no (unknown) (unknown) (no value) (units (unk nown) date) unknown) (unknown) (no (unknown) (unknown) Orders: (units (unkno wn) date) unknown) (unknown) (no (unknown) (unknown) (no value) (units (unk nown) date) unknown) (unknown) (no (unknown) (unknown) (no value) (units (unk nown) date) unknown) (unknown) (no (unknown) (unknown) [place], [place] (units ( unknown) date) [id number] unknown) (unknown) (no (unknown) (unknown) Diabetes mellitus (units (unknown) date) unknown) (unknown) (no (unknown) (unknown) Draft (units (unkno wn) date) unknown) (unknown) (no (unknown) (unknown) Family Practice (units (unknown) date) Office Visit unknown) (unknown) (no (unknown) (unknown) [facility]) (unknown) (no (unknown) (unknown) High cholesterol (units (unknown) date) unknown) (unknown) (no (unknown) (unknown) Hypertension (units (u nknown) date) unknown) (unknown) (no (unknown) (unknown) Obesity (units (unkno wn) date) unknown) (unknown) (no (unknown) (unknown) Stroke (units (unkno wn) date) unknown) (unknown) (no (unknown) (unknown) (no value) (units (unk nown) date) unknown) (unknown) (no (unknown) (unknown) [id number] (units (unkno wn) date) unknown) (unknown) (no (unknown) (unknown) 10/02/21 (units (unkno wn) date) unknown) (unknown) (no (unknown) (unknown) 1. Medication (units ( unknown) date) review unknown) (unknown) (no (unknown) (unknown) 2.Recent open (units ( unknown) date) cholecystectomy unknown) (unknown) (no (unknown) (unknown) 3. KULDIP (units (unkno wn) date) unknown) (unknown) (no (unknown) (unknown) 4. Hypothyroid (units (unknown) date) unknown) (unknown) (no (unknown) (unknown) 5. Fe - (units (unkno wn) date) deficiency anemia unknown) (unknown) (no (unknown) (unknown) 6. Behavioral (units ( unknown) date) health - unknown) anxiety/depression (unknown) (no (unknown) (unknown) Abdominal pain (units (unknown) date) unknown) (unknown) (no (unknown) (unknown) Abnormal Pap (units (u nknown) date) smear of cervix unknown) (-2013) (unknown) (no (unknown) (unknown) Age/Sex: 45 / F (units (unknown) date) Date of Service: unknown) (unknown) (no (unknown) (unknown) Allergies (units (unkn own) date) unknown) (unknown) (no (unknown) (unknown) Anemia (units (unkno wn) date) unknown) (unknown) (no (unknown) (unknown) Anemia, (units (unkno wn) date) unspecified unknown) (unknown) (no (unknown) (unknown) Anesthesia (units (unk nown) date) unknown) (unknown) (no (unknown) (unknown) Ankle pain (units (unk nown) date) () unknown) (unknown) (no (unknown) (unknown) Anxiety (units (unkno wn) date) unknown) (unknown) (no (unknown) (unknown) Assessment + Plan (units (unknown) date) unknown) (unknown) (no (unknown) (unknown) Attending Dr: (units ( unknown) date) Stefanie Kholi MD unknown) (unknown) (no (unknown) (unknown) Hernandez's palsy (units (u nknown) date) unknown) (unknown) (no (unknown) (unknown) Brother No (units (unknown) date) problems noted. unknown) (unknown) (no (unknown) (unknown) Chickenpox (units (unk nown) date) unknown) (unknown) (no (unknown) (unknown) Chief Complaint (units (unknown) date) unknown) (unknown) (no (unknown) (unknown) Chief Complaint: (units (unknown) date) medication review unknown) and follow-up (unknown) (no (unknown) (unknown) Chronic back pain (units (unknown) date) unknown) (unknown) (no (unknown) (unknown) Complete Blood (units (unknown) date) Count AUTO DIFF unknown) Today D50.9 - Iron deficiency anemia, (unknown) (no (unknown) (unknown) Comprehensive (units (u nknown) date) Metabolic Panel unknown) Today D50.9 - Iron deficiency anemia, unspecified, (unknown) (no (unknown) (unknown) : 1975 (units (unknown) date) Acct:[id number] unknown) (unknown) (no (unknown) (unknown) Chace is a 45 yo (units (unknown) date) lady with a hx of unknown) MMP including HTN, and hypothyroidism so she (unknown) (no (unknown) (unknown) Depression (units (unk nown) date) unknown) (unknown) (no (unknown) (unknown) Dept at (units (unkno wn) date) . unknown) (unknown) (no (unknown) (unknown) Details: (units (unkno wn) date) unknown) (unknown) (no (unknown) (unknown) Diarrhea (units (unkno wn) date) unknown) (unknown) (no (unknown) (unknown) Documented By: (units (unknown) date) Stefanie Kohli MD unknown) 10/02/21 1336 (unknown) (no (unknown) (unknown) Dyslexia (units (unkno wn) date) unknown) (unknown) (no (unknown) (unknown) E16.2 - (units (unkno wn) date) Hypoglycemia, unknown) unspecified, E78.5 - Hyperlipidemia, unspecified, I10 - (unknown) (no (unknown) (unknown) Essential (units (unkn own) date) (primary) unknown) hypertension, R73.03 - Prediabetes (unknown) (no (unknown) (unknown) Essential (units (unkn own) date) hypertension unknown) (unknown) (no (unknown) (unknown) Exam (units (unkno wn) date) unknown) (unknown) (no (unknown) (unknown) Exam Narrative (units (unknown) date) unknown) (unknown) (no (unknown) (unknown) Exam Narrative: (units (unknown) date) unknown) (unknown) (no (unknown) (unknown) Family History (units (unknown) date) (Reviewed 10/02/21 unknown) @ 14:30 by Stefanie Kohli MD) (unknown) (no (unknown) (unknown) Father No (units (unknown) date) problems noted. unknown) (unknown) (no (unknown) (unknown) Feeling fine (units (u nknown) date) unknown) (unknown) (no (unknown) (unknown) Fracture () (units (unknown) date) unknown) (unknown) (no (unknown) (unknown) GB healing well (units (unknown) date) unknown) (unknown) (no (unknown) (unknown) Gen (units (unkno wn) date) unknown) (unknown) (no (unknown) (unknown) Gets these (units (unk nown) date) through Behavioral unknown) Health and is seeing counselor (unknown) (no (unknown) (unknown) Grandfather (units (un known) date) Cancer unknown) (unknown) (no (unknown) (unknown) Grandmother (units (un known) date) Heart unknown) disease (unknown) (no (unknown) (unknown) 3 (units (unkn own) date) unknown) (unknown) (no (unknown) (unknown) HPI (units (unkno wn) date) unknown) (unknown) (no (unknown) (unknown) 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) unknown) infection () (unknown) (no (unknown) (unknown) Has her Rx with 3 (units (unknown) date) RF unknown) (unknown) (no (unknown) (unknown) Hearing deficit (units (unknown) date) unknown) (unknown) (no (unknown) (unknown) Hemoglobin A1C% w (units (unknown) date) Est Avg Glu Today unknown) D50.9 - Iron deficiency anemia, unspecified, (unknown) (no (unknown) (unknown) History of ankle (units (unknown) date) surgery () unknown) (unknown) (no (unknown) (unknown) History of (units (unk nown) date) section unknown) (unknown) (no (unknown) (unknown) History of (units (unk nown) date) frequent headaches unknown) (unknown) (no (unknown) (unknown) History of third (units (unknown) date) molar tooth unknown) extraction () (unknown) (no (unknown) (unknown) Hyperlipidemia (units (unknown) date) unknown) (unknown) (no (unknown) (unknown) Hypothyroidism (units (unknown) date) (-2013) unknown) (unknown) (no (unknown) (unknown) IBS (irritable (units (unknown) date) bowel syndrome) unknown) () (unknown) (no (unknown) (unknown) In retrospect, (units (unknown) date) there had been unknown) some long-standing sx that were likely subacute (unknown) (no (unknown) (unknown) Intake (units (unkno wn) date) unknown) (unknown) (no (unknown) (unknown) Irregular (units (unkn own) date) heartbeat unknown) (unknown) (no (unknown) (unknown) It was acutely (units ( unknown) date) inflamed and unknown) required open procedure and speciment to path to r/o (unknown) (no (unknown) (unknown) Just got new (units (u nknown) date) mattress and frame unknown) - may also help (unknown) (no (unknown) (unknown) Loc: [facility] (units (unkno wn) date) unknown) (unknown) (no (unknown) (unknown) MM screening (units (u nknown) date) mammo BI 10/01/21 unknown) Z12.31 - Encounter for screening mammogram for (unknown) (no (unknown) (unknown) Medical History (units (unknown) date) (Reviewed 10/02/21 unknown) @ 14:29 by Stefanie Kohli MD) (unknown) (no (unknown) (unknown) Mother Age: 68 (units (unknown) date) Atrial unknown) fibrillation (unknown) (no (unknown) (unknown) No Known Drug (units ( unknown) date) Allergies Allergy unknown) (Verified 07/29/21 10:12) (unknown) (no (unknown) (unknown) KULDIP on CPAP (units (un known) date) unknown) (unknown) (no (unknown) (unknown) One month post-op (units (unknown) date) check with Dr. sheriff) Sherry she was doing well. (unknown) (no (unknown) (unknown) Orders (units (unkno wn) date) unknown) (unknown) (no (unknown) (unknown) PFSH (units (unkno wn) date) unknown) (unknown) (no (unknown) (unknown) PTSD (units (unkno wn) date) (post-traumatic unknown) stress disorder) (unknown) (no (unknown) (unknown) Patient: (units (unkno wn) date) Chace Harvey M unknown) MR#: [id number] (unknown) (no (unknown) (unknown) Plan (units (unkno wn) date) unknown) (unknown) (no (unknown) (unknown) Pre-diabetes (units (u nknown) date) unknown) (unknown) (no (unknown) (unknown) ROS (units (unkno wn) date) unknown) (unknown) (no (unknown) (unknown) ROS Narrative (units ( unknown) date) unknown) (unknown) (no (unknown) (unknown) ROS Narrative: (units (unknown) date) unknown) (unknown) (no (unknown) (unknown) Reason For Visit (units (unknown) date) unknown) (unknown) (no (unknown) (unknown) Recheck annualy (units (unknown) date) (April for her unknown) routine annual) or prn sooner (unknown) (no (unknown) (unknown) Recheck labs for (units (unknown) date) anemia, abn LFT's unknown) and A1c for IFG (unknown) (no (unknown) (unknown) She has returned (units (unknown) date) to work on Jul 06 unknown) and it's going well (unknown) (no (unknown) (unknown) She is having (units ( unknown) date) problems with her unknown) machine but they are in process of fixing it (unknown) (no (unknown) (unknown) Signed By: (units (unk nown) date) unknown) (unknown) (no (unknown) (unknown) Sleep apnea (units (un known) date) (-2016) unknown) (unknown) (no (unknown) (unknown) Smoking Status: (units (unknown) date) Never smoker unknown) (unknown) (no (unknown) (unknown) Social History (units (unknown) date) unknown) (unknown) (no (unknown) (unknown) Status post tubal (units (unknown) date) ligation (-2003) unknown) (unknown) (no (unknown) (unknown) Surgical History (units (unknown) date) (Reviewed 10/02/21 unknown) @ 14:30 by Stefanie Kohli MD) (unknown) (no (unknown) (unknown) This note may (units ( unknown) date) have been all or unknown) partially generated using voice recognition (unknown) (no (unknown) (unknown) Tobacco + (units (unkn own) date) Substance Use unknown) (unknown) (no (unknown) (unknown) Tobacco Status (units (unknown) date) unknown) (unknown) (no (unknown) (unknown) Ulnar neuropathy (units (unknown) date) unknown) (unknown) (no (unknown) (unknown) Visit Reasons: (units (unknown) date) Med review and unknown) follow up 04 (unknown) (no (unknown) (unknown) Would like (units (unk nown) date) ferrous gluconate unknown) instead (unknown) (no (unknown) (unknown) alcohol intake: (units (unknown) date) never unknown) (unknown) (no (unknown) (unknown) as per HPI (units (unk nown) date) unknown) (unknown) (no (unknown) (unknown) cholecystitis. (units (unknown) date) unknown) (unknown) (no (unknown) (unknown) have occurred. (units (unknown) date) If there are any unknown) questions, please contact the Medical Records (unknown) (no (unknown) (unknown) household (units (unkn own) date) members: other unknown) (unknown) (no (unknown) (unknown) is here for (units (un known) date) unknown) (unknown) (no (unknown) (unknown) malignancy. (units (un known) date) unknown) (unknown) (no (unknown) (unknown) malignant (units (unkn own) date) neoplasm of breast unknown) (unknown) (no (unknown) (unknown) may occur. (units (unk nown) date) Occasional unknown) wrong-word or 'sound-alike' substitutions may have (unknown) (no (unknown) (unknown) occurred due to (units (unknown) date) the inherent unknown) limitations of voice recognition software. Please (unknown) (no (unknown) (unknown) read the note (units ( unknown) date) carefully and unknown) recognize, using context, where these substitutions (unknown) (no (unknown) (unknown) software. (units (unkn own) date) Although every unknown) effort is made to edit content, manager union errors (unknown) (no (unknown) (unknown) unspecified, (units (u nknown) date) E16.2 - unknown) Hypoglycemia, unspecified, E78.5 - Hyperlipidemia, (unknown) (no (unknown) (unknown) unspecified, I10 (units (unknown) date) - Essential unknown) (primary) hypertension, R73.03 - Prediabetes Result panel 6 (unknown) (no date) (unknown) (unknown) 5.4 % (unkn own) Result panel 7 (unknown) (no date) (unknown) (unknown) 0.9 % (unkn own) (unknown) (no date) (unknown) (unknown) 1.0 % (unkn own) (unknown) (no date) (unknown) (unknown) 100 /uL (unkn own) (unknown) (no date) (unknown) (unknown) 100 /uL (unkn own) (unknown) (no date) (unknown) (unknown) 11.9 g/dL (unkn own) (unknown) (no date) (unknown) (unknown) 16.1 % (unkn own) (unknown) (no date) (unknown) (unknown) 1700 /uL (unkn own) (unknown) (no date) (unknown) (unknown) 24.2 PG (unkn own) (unknown) (no date) (unknown) (unknown) 253 X10 3/uL (unkn own) (unknown) (no date) (unknown) (unknown) 26.8 % (unkn own) (unknown) (no date) (unknown) (unknown) 33.1 % (unkn own) (unknown) (no date) (unknown) (unknown) 36.0 % (unkn own) (unknown) (no date) (unknown) (unknown) 4.92 X10 6/uL (unkn own) (unknown) (no date) (unknown) (unknown) 400 /uL (unkn own) (unknown) (no date) (unknown) (unknown) 4000 /uL (unkn own) (unknown) (no date) (unknown) (unknown) 6.2 X10 3/uL (unkn own) (unknown) (no date) (unknown) (unknown) 6.3 % (unkn own) (unknown) (no date) (unknown) (unknown) 65.0 % (unkn own) (unknown) (no date) (unknown) (unknown) 73.1 fL (unkn own) Result panel 8 (unknown) (no date) (unknown) (unknown) > 60.0 mL/min (unkn own) (unknown) (no date) (unknown) (unknown) 0.5 mg/dL (unkn own) (unknown) (no date) (unknown) (unknown) 0.64 mg/dL (unkn own) (unknown) (no date) (unknown) (unknown) 1.4 (units unknown) (unknown) (unknown) (no date) (unknown) (unknown) 100 mmol/L (unkn own) (unknown) (no date) (unknown) (unknown) 12.5 (units unknown) (unknown) (unknown) (no date) (unknown) (unknown) 138 mmol/L (unkn own) (unknown) (no date) (unknown) (unknown) 3.1 g/dL (unkn own) (unknown) (no date) (unknown) (unknown) 31 IU/L (unkn own) (unknown) (no date) (unknown) (unknown) 31 mmol/L (unkn own) (unknown) (no date) (unknown) (unknown) 39 IU/L (unkn own) (unknown) (no date) (unknown) (unknown) 4.3 g/dL (unkn own) (unknown) (no date) (unknown) (unknown) 4.3 mmol/L (unkn own) (unknown) (no date) (unknown) (unknown) 7.4 g/dL (unkn own) (unknown) (no date) (unknown) (unknown) 8 mg/dL (unkn own) (unknown) (no date) (unknown) (unknown) 88 U/L (unkn own) (unknown) (no date) (unknown) (unknown) 9.1 mg/dL (unkn own) (unknown) (no date) (unknown) (unknown) 92 mg/dL (unkn own) Result panel 9 (unknown) (no (unknown) (unknown) (no value) (units (unk nown) date) unknown) (unknown) (no (unknown) (unknown) Orders: (units (unkno wn) date) unknown) (unknown) (no (unknown) (unknown) (no value) (units (unk nown) date) unknown) (unknown) (no (unknown) (unknown) (no value) (units (unk nown) date) unknown) (unknown) (no (unknown) (unknown) 10/02/21 (units (unkno wn) date) unknown) (unknown) (no (unknown) (unknown) 13:46 (units (unkno wn) date) unknown) (unknown) (no (unknown) (unknown) [place], [place] (units ( unknown) date) [id number] unknown) (unknown) (no (unknown) (unknown) Diabetes mellitus (units (unknown) date) unknown) (unknown) (no (unknown) (unknown) Draft (units (unkno wn) date) unknown) (unknown) (no (unknown) (unknown) Family Practice (units (unknown) date) Office Visit unknown) (unknown) (no (unknown) (unknown) [facility] ([facility] unknown) (unknown) (no (unknown) (unknown) High cholesterol (units (unknown) date) unknown) (unknown) (no (unknown) (unknown) Hypertension (units (u nknown) date) unknown) (unknown) (no (unknown) (unknown) Obesity (units (unkno wn) date) unknown) (unknown) (no (unknown) (unknown) Stroke (units (unkno wn) date) unknown) (unknown) (no (unknown) (unknown) (no value) (units (unk nown) date) unknown) (unknown) (no (unknown) (unknown) [id number] (units (unkno wn) date) unknown) (unknown) (no (unknown) (unknown) 10/02/21 (units (unkno wn) date) unknown) (unknown) (no (unknown) (unknown) 1. Medication (units ( unknown) date) review unknown) (unknown) (no (unknown) (unknown) 2.Recent open (units ( unknown) date) cholecystectomy unknown) (unknown) (no (unknown) (unknown) 3. KULDIP (units (unkno wn) date) unknown) (unknown) (no (unknown) (unknown) 4. Hypothyroid (units (unknown) date) unknown) (unknown) (no (unknown) (unknown) 5. Fe - (units (unkno wn) date) deficiency anemia unknown) (unknown) (no (unknown) (unknown) 6. Behavioral (units ( unknown) date) health - unknown) anxiety/depression (unknown) (no (unknown) (unknown) Abdominal pain (units (unknown) date) unknown) (unknown) (no (unknown) (unknown) Abnormal Pap (units (u nknown) date) smear of cervix unknown) () (unknown) (no (unknown) (unknown) Age/Sex: 45 / F (units (unknown) date) Date of Service: unknown) (unknown) (no (unknown) (unknown) Allergies (units (unkn own) date) unknown) (unknown) (no (unknown) (unknown) Anemia (units (unkno wn) date) unknown) (unknown) (no (unknown) (unknown) Anemia, (units (unkno wn) date) unspecified unknown) (unknown) (no (unknown) (unknown) Anesthesia (units (unk nown) date) unknown) (unknown) (no (unknown) (unknown) Ankle pain (units (unk nown) date) () unknown) (unknown) (no (unknown) (unknown) Anxiety (units (unkno wn) date) unknown) (unknown) (no (unknown) (unknown) Assessment + Plan (units (unknown) date) unknown) (unknown) (no (unknown) (unknown) Attending Dr: (units ( unknown) date) Stefanie Kohli MD unknown) (unknown) (no (unknown) (unknown) BMI 41.5 (units (un known) date) unknown) (unknown) (no (unknown) (unknown) BP 120/80 (units (u nknown) date) unknown) (unknown) (no (unknown) (unknown) Hernandez's palsy (units (u nknown) date) unknown) (unknown) (no (unknown) (unknown) Blood Pressure (units (unknown) date) Location Lt unknown) brachial (unknown) (no (unknown) (unknown) Brother No (units (unknown) date) problems noted. unknown) (unknown) (no (unknown) (unknown) Chickenpox (units (unk nown) date) unknown) (unknown) (no (unknown) (unknown) Chief Complaint (units (unknown) date) unknown) (unknown) (no (unknown) (unknown) Chief Complaint: (units (unknown) date) medication review unknown) and follow-up (unknown) (no (unknown) (unknown) Chronic back pain (units (unknown) date) unknown) (unknown) (no (unknown) (unknown) Complete Blood (units (unknown) date) Count AUTO DIFF unknown) 10/02/21 D50.9 - Iron deficiency anemia, (unknown) (no (unknown) (unknown) Comprehensive (units ( unknown) date) Metabolic Panel unknown) 10/02/21 D50.9 - Iron deficiency anemia, (unknown) (no (unknown) (unknown) : 1975 (units (unknown) date) Acct:[id number] unknown) (unknown) (no (unknown) (unknown) Chace is a 45 yo (units (unknown) date) lady with a hx of unknown) MMP including HTN, and hypothyroidism so she (unknown) (no (unknown) (unknown) Depression (units (unk nown) date) unknown) (unknown) (no (unknown) (unknown) Dept at (units (unkno wn) date) . unknown) (unknown) (no (unknown) (unknown) Details: (units (unkno wn) date) unknown) (unknown) (no (unknown) (unknown) Diarrhea (units (unkno wn) date) unknown) (unknown) (no (unknown) (unknown) Documented By: (units (unknown) date) Stefanie Kohli MD unknown) 10/02/21 1336 (unknown) (no (unknown) (unknown) Dyslexia (units (unkno wn) date) unknown) (unknown) (no (unknown) (unknown) Essential (units (unkn own) date) hypertension unknown) (unknown) (no (unknown) (unknown) Exam (units (unkno wn) date) unknown) (unknown) (no (unknown) (unknown) Exam Narrative (units (unknown) date) unknown) (unknown) (no (unknown) (unknown) Exam Narrative: (units (unknown) date) unknown) (unknown) (no (unknown) (unknown) Family History (units (unknown) date) (Reviewed 10/02/21 unknown) @ 14:30 by Stefanie Kohli MD) (unknown) (no (unknown) (unknown) Father No (units (unknown) date) problems noted. unknown) (unknown) (no (unknown) (unknown) Feeling fine (units (u nknown) date) unknown) (unknown) (no (unknown) (unknown) Fracture () (units (unknown) date) unknown) (unknown) (no (unknown) (unknown) GB healing well (units (unknown) date) unknown) (unknown) (no (unknown) (unknown) Gen (units (unkno wn) date) unknown) (unknown) (no (unknown) (unknown) Gets these (units (unk nown) date) through Behavioral unknown) Health and is seeing counselor (unknown) (no (unknown) (unknown) Grandfather (units (un known) date) Cancer unknown) (unknown) (no (unknown) (unknown) Grandmother (units (un known) date) Heart unknown) disease (unknown) (no (unknown) (unknown) 3 (units (unkn own) date) unknown) (unknown) (no (unknown) (unknown) HCTZ 25 mg (units (unk nown) date) unknown) (unknown) (no (unknown) (unknown) HPI (units (unkno wn) date) unknown) (unknown) (no (unknown) (unknown) 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) unknown) infection () (unknown) (no (unknown) (unknown) Has her Rx with 3 (units (unknown) date) RF unknown) (unknown) (no (unknown) (unknown) Hearing deficit (units (unknown) date) unknown) (unknown) (no (unknown) (unknown) Height 5 ft 4 (units (unknown) date) in unknown) (unknown) (no (unknown) (unknown) Hemoglobin A1C% w (units (unknown) date) Est Avg Glu unknown) 10/02/21 D50.9 - Iron deficiency anemia, (unknown) (no (unknown) (unknown) History of ankle (units (unknown) date) surgery () unknown) (unknown) (no (unknown) (unknown) History of (units (unk nown) date) section unknown) (unknown) (no (unknown) (unknown) History of (units (unk nown) date) frequent headaches unknown) (unknown) (no (unknown) (unknown) History of third (units (unknown) date) molar tooth unknown) extraction () (unknown) (no (unknown) (unknown) Hyperlipidemia (units (unknown) date) unknown) (unknown) (no (unknown) (unknown) Hypothyroidism (units (unknown) date) () unknown) (unknown) (no (unknown) (unknown) IBS (irritable (units (unknown) date) bowel syndrome) unknown) () (unknown) (no (unknown) (unknown) In retrospect, (units (unknown) date) there had been unknown) some long-standing sx that were likely subacute (unknown) (no (unknown) (unknown) Intake (units (unkno wn) date) unknown) (unknown) (no (unknown) (unknown) Irregular (units (unkn own) date) heartbeat unknown) (unknown) (no (unknown) (unknown) It was acutely (units ( unknown) date) inflamed and unknown) required open procedure and speciment to path to r/o (unknown) (no (unknown) (unknown) Just got new (units (u nknown) date) mattress and frame unknown) - may also help (unknown) (no (unknown) (unknown) Loc: [facility] (units (unkno wn) date) unknown) (unknown) (no (unknown) (unknown) MM screening (units (u nknown) date) mammo BI 10/01/21 unknown) Z12.31 - Encounter for screening mammogram for (unknown) (no (unknown) (unknown) Medical History (units (unknown) date) (Reviewed 10/02/21 unknown) @ 14:29 by Stefanie Kohli MD) (unknown) (no (unknown) (unknown) Mother Age: 68 (units (unknown) date) Atrial unknown) fibrillation (unknown) (no (unknown) (unknown) Needs RF on (units (un known) date) ferrous gluconate unknown) (instead of ferrous sulfate, which causes more (unknown) (no (unknown) (unknown) No Known Drug (units ( unknown) date) Allergies Allergy unknown) (Verified 07/29/21 10:12) (unknown) (no (unknown) (unknown) KULDIP on CPAP (units (un known) date) unknown) (unknown) (no (unknown) (unknown) One month post-op (units (unknown) date) check with Dr. sheriff) Sherry she was doing well. (unknown) (no (unknown) (unknown) Orders (units (unkno wn) date) unknown) (unknown) (no (unknown) (unknown) Oxygen Delivery (units (unknown) date) Method room air unknown) (unknown) (no (unknown) (unknown) PFSH (units (unkno wn) date) unknown) (unknown) (no (unknown) (unknown) PTSD (units (unkno wn) date) (post-traumatic unknown) stress disorder) (unknown) (no (unknown) (unknown) Patient: (units (unkno wn) date) Chace Harvey unknown) MR#: [id number] (unknown) (no (unknown) (unknown) Plan (units (unkno wn) date) unknown) (unknown) (no (unknown) (unknown) Position (units (unkno wn) date) Sitting unknown) (unknown) (no (unknown) (unknown) Pre-diabetes (units (u nknown) date) unknown) (unknown) (no (unknown) (unknown) Pulse 72 (units (un known) date) unknown) (unknown) (no (unknown) (unknown) Pulse Oximetry (units (unknown) date) (%) 98 unknown) (unknown) (no (unknown) (unknown) Pulse Source (units (u nknown) date) Monitor unknown) (unknown) (no (unknown) (unknown) ROS (units (unkno wn) date) unknown) (unknown) (no (unknown) (unknown) ROS Narrative (units ( unknown) date) unknown) (unknown) (no (unknown) (unknown) ROS Narrative: (units (unknown) date) unknown) (unknown) (no (unknown) (unknown) Reason For Visit (units (unknown) date) unknown) (unknown) (no (unknown) (unknown) Recheck annualy (units (unknown) date) (April for her unknown) routine annual) or prn sooner (unknown) (no (unknown) (unknown) Recheck labs for (units (unknown) date) anemia, abn LFT's unknown) and A1c for IFG (unknown) (no (unknown) (unknown) Respiration 16 (units (unknown) date) unknown) (unknown) (no (unknown) (unknown) She has returned (units (unknown) date) to work on Jul 06 unknown) and it's going well (unknown) (no (unknown) (unknown) She is having (units ( unknown) date) problems with her unknown) machine but they are in process of fixing it (unknown) (no (unknown) (unknown) Signed By: (units (unk nown) date) unknown) (unknown) (no (unknown) (unknown) Sleep apnea (units (un known) date) (-2016) unknown) (unknown) (no (unknown) (unknown) Smoking Status: (units (unknown) date) Never smoker unknown) (unknown) (no (unknown) (unknown) Social History (units (unknown) date) unknown) (unknown) (no (unknown) (unknown) Status post tubal (units (unknown) date) ligation () unknown) (unknown) (no (unknown) (unknown) Surgical History (units (unknown) date) (Reviewed 10/02/21 unknown) @ 14:30 by Stefanie Kohli MD) (unknown) (no (unknown) (unknown) Temp 96.9 F L (units (unknown) date) unknown) (unknown) (no (unknown) (unknown) Temp Source (units (un known) date) Temporal Artery unknown) Scan (unknown) (no (unknown) (unknown) This note may (units ( unknown) date) have been all or unknown) partially generated using voice recognition (unknown) (no (unknown) (unknown) Tobacco + (units (unkn own) date) Substance Use unknown) (unknown) (no (unknown) (unknown) Tobacco Status (units (unknown) date) unknown) (unknown) (no (unknown) (unknown) Ulnar neuropathy (units (unknown) date) unknown) (unknown) (no (unknown) (unknown) Visit Reasons: (units (unknown) date) Med review and unknown) follow up 04 (unknown) (no (unknown) (unknown) Vitals (units (unkno wn) date) unknown) (unknown) (no (unknown) (unknown) Weight 242 lb (units (unknown) date) 6 oz unknown) (unknown) (no (unknown) (unknown) Would like (units (unk nown) date) ferrous gluconate unknown) instead (unknown) (no (unknown) (unknown) alcohol intake: (units (unknown) date) never unknown) (unknown) (no (unknown) (unknown) as per HPI (units (unk nown) date) unknown) (unknown) (no (unknown) (unknown) cholecystitis. (units (unknown) date) unknown) (unknown) (no (unknown) (unknown) have occurred. (units (unknown) date) If there are any unknown) questions, please contact the Medical Records (unknown) (no (unknown) (unknown) household (units (unkn own) date) members: other unknown) (unknown) (no (unknown) (unknown) is here for (units (un known) date) unknown) (unknown) (no (unknown) (unknown) malignancy. (units (un known) date) unknown) (unknown) (no (unknown) (unknown) malignant (units (unkn own) date) neoplasm of breast unknown) (unknown) (no (unknown) (unknown) may occur. (units (unk nown) date) Occasional unknown) wrong-word or 'sound-alike' substitutions may have (unknown) (no (unknown) (unknown) occurred due to (units (unknown) date) the inherent unknown) limitations of voice recognition software. Please (unknown) (no (unknown) (unknown) read the note (units ( unknown) date) carefully and unknown) recognize, using context, where these substitutions (unknown) (no (unknown) (unknown) side effects) 325 (units (unknown) date) mg unknown) (unknown) (no (unknown) (unknown) software. (units (unkn own) date) Although every unknown) effort is made to edit content, manager union errors (unknown) (no (unknown) (unknown) unspecified, (units (u nknown) date) E16.2 - unknown) Hypoglycemia, unspecified, E78.5 - Hyperlipidemia, (unknown) (no (unknown) (unknown) unspecified, I10 (units (unknown) date) - Essential unknown) (primary) hypertension, R73.03 - Prediabetes Result panel 10 (unknown) (no (unknown) (unknown) (no value) (units (unk nown) date) unknown) (unknown) (no (unknown) (unknown) Medications: (units (u nknown) date) unknown) (unknown) (no (unknown) (unknown) Orders: (units (unkno wn) date) unknown) (unknown) (no (unknown) (unknown) (no value) (units (unk nown) date) unknown) (unknown) (no (unknown) (unknown) (no value) (units (unk nown) date) unknown) (unknown) (no (unknown) (unknown) 10/02/21 (units (unkno wn) date) unknown) (unknown) (no (unknown) (unknown) 13:46 (units (unkno wn) date) unknown) (unknown) (no (unknown) (unknown) APPOINTMENT DUE FOR (unit s (unknown) date) FURTHER REFILLS. unknown) THANK YOU! 25 mg PO DAILY 90 tabs 3RF (unknown) (no (unknown) (unknown) MARCIAL [place] [id number] (unit s (unknown) date) unknown) (unknown) (no (unknown) (unknown) Diabetes mellitus (units (unknown) date) unknown) (unknown) (no (unknown) (unknown) Discontinued Reason: (uni ts (unknown) date) Patient Refused 325 unknown) mg PO DAILY 30 tabs 0RF (unknown) (no (unknown) (unknown) Draft (units (unkno wn) date) unknown) (unknown) (no (unknown) (unknown) Family Practice (units (unknown) date) Office Visit unknown) (unknown) (no (unknown) (unknown) [facility] ([facility] unknown) (unknown) (no (unknown) (unknown) High cholesterol (units (unknown) date) unknown) (unknown) (no (unknown) (unknown) Hypertension (units (u nknown) date) unknown) (unknown) (no (unknown) (unknown) Obesity (units (unkno wn) date) unknown) (unknown) (no (unknown) (unknown) Stroke (units (unkno wn) date) unknown) (unknown) (no (unknown) (unknown) (no value) (units (unk nown) date) unknown) (unknown) (no (unknown) (unknown) [id number] (units (unkno wn) date) unknown) (unknown) (no (unknown) (unknown) 10/02/21 (units (unkno wn) date) unknown) (unknown) (no (unknown) (unknown) 1. Medication review (uni ts (unknown) date) unknown) (unknown) (no (unknown) (unknown) 2.Recent open (units ( unknown) date) cholecystectomy unknown) (unknown) (no (unknown) (unknown) 3. KULDIP (units (unkno wn) date) unknown) (unknown) (no (unknown) (unknown) 4. Hypothyroid (units (unknown) date) unknown) (unknown) (no (unknown) (unknown) 5. Fe - deficiency (units (unknown) date) anemia unknown) (unknown) (no (unknown) (unknown) 6. Behavioral health (uni ts (unknown) date) - anxiety/depression unknown) (unknown) (no (unknown) (unknown) Abdominal pain (units (unknown) date) unknown) (unknown) (no (unknown) (unknown) Abnormal Pap smear (units (unknown) date) of cervix () unknown) (unknown) (no (unknown) (unknown) Age/Sex: 45 / F (units (unknown) date) Date of Service: unknown) (unknown) (no (unknown) (unknown) Allergies (units (unkn own) date) unknown) (unknown) (no (unknown) (unknown) Anemia (units (unkno wn) date) unknown) (unknown) (no (unknown) (unknown) Anemia, unspecified (unit s (unknown) date) unknown) (unknown) (no (unknown) (unknown) Anesthesia (units (unk nown) date) unknown) (unknown) (no (unknown) (unknown) Ankle pain (-2016) (units (unknown) date) unknown) (unknown) (no (unknown) (unknown) Anxiety (units (unkno wn) date) unknown) (unknown) (no (unknown) (unknown) Assessment + Plan (units (unknown) date) unknown) (unknown) (no (unknown) (unknown) Attending Dr: Stefanie Zaldivar (uni ts (unknown) date) Seun FRAUSTO unknown) (unknown) (no (unknown) (unknown) BMI 41.5 (units (un known) date) unknown) (unknown) (no (unknown) (unknown) BP 120/80 (units (u nknown) date) unknown) (unknown) (no (unknown) (unknown) Hernandez's palsy (units (u nknown) date) unknown) (unknown) (no (unknown) (unknown) Blood Pressure (units (unknown) date) Location Lt unknown) brachial (unknown) (no (unknown) (unknown) Brother No (units (unknown) date) problems noted. unknown) (unknown) (no (unknown) (unknown) Chickenpox (units (unk nown) date) unknown) (unknown) (no (unknown) (unknown) Chief Complaint (units (unknown) date) unknown) (unknown) (no (unknown) (unknown) Chief Complaint: (units (unknown) date) medication review and unknown) follow-up (unknown) (no (unknown) (unknown) Chronic back pain (units (unknown) date) unknown) (unknown) (no (unknown) (unknown) Complete Blood Count (uni ts (unknown) date) AUTO DIFF 10/02/21 unknown) D50.9 - Iron deficiency anemia, (unknown) (no (unknown) (unknown) Comprehensive (units ( unknown) date) Metabolic Panel unknown) 10/02/21 D50.9 - Iron deficiency anemia, (unknown) (no (unknown) (unknown) : 1975 (units (unknown) date) Acct:[id number] unknown) (unknown) (no (unknown) (unknown) Chace is a 45 yo (units (unknown) date) lady with a hx of MMP unknown) including HTN, and hypothyroidism so she (unknown) (no (unknown) (unknown) Depression (units (unk nown) date) unknown) (unknown) (no (unknown) (unknown) Dept at (units (unkno wn) date) . unknown) (unknown) (no (unknown) (unknown) Details: (units (unkno wn) date) unknown) (unknown) (no (unknown) (unknown) Diarrhea (units (unkno wn) date) unknown) (unknown) (no (unknown) (unknown) Discontinued (units (u nknown) date) unknown) (unknown) (no (unknown) (unknown) Documented By: (units (unknown) date) Stefanie Kohli MD unknown) 10/02/21 1336 (unknown) (no (unknown) (unknown) Dyslexia (units (unkno wn) date) unknown) (unknown) (no (unknown) (unknown) Essential (units (unkn own) date) hypertension unknown) (unknown) (no (unknown) (unknown) Exam (units (unkno wn) date) unknown) (unknown) (no (unknown) (unknown) Exam Narrative (units (unknown) date) unknown) (unknown) (no (unknown) (unknown) Exam Narrative: (units (unknown) date) unknown) (unknown) (no (unknown) (unknown) Family History (units (unknown) date) (Reviewed 10/02/21 @ unknown) 14:30 by Stefanie Kohli MD) (unknown) (no (unknown) (unknown) Father No (units (unknown) date) problems noted. unknown) (unknown) (no (unknown) (unknown) Feeling fine (units (u nknown) date) unknown) (unknown) (no (unknown) (unknown) Fracture (-2016) (units (unknown) date) unknown) (unknown) (no (unknown) (unknown) GB healing well (units (unknown) date) unknown) (unknown) (no (unknown) (unknown) Gen (units (unkno wn) date) unknown) (unknown) (no (unknown) (unknown) Gets these through (units (unknown) date) Behavioral Health and unknown) is seeing counselor (unknown) (no (unknown) (unknown) Grandfather (units (un known) date) Cancer unknown) (unknown) (no (unknown) (unknown) Grandmother (units (un known) date) Heart unknown) disease (unknown) (no (unknown) (unknown) 3 (units (unkn own) date) unknown) (unknown) (no (unknown) (unknown) HCTZ 25 mg (units (unk nown) date) unknown) (unknown) (no (unknown) (unknown) HPI (units (unkno wn) date) unknown) (unknown) (no (unknown) (unknown) HSV (herpes simplex (unit s (unknown) date) virus) infection unknown) () (unknown) (no (unknown) (unknown) Has her Rx with 3 RF (uni ts (unknown) date) unknown) (unknown) (no (unknown) (unknown) Hearing deficit (units (unknown) date) unknown) (unknown) (no (unknown) (unknown) Height 5 ft 4 in (unit s (unknown) date) unknown) (unknown) (no (unknown) (unknown) Hemoglobin A1C% w (units (unknown) date) Est Avg Glu 10/02/21 unknown) D50.9 - Iron deficiency anemia, (unknown) (no (unknown) (unknown) History of ankle (units (unknown) date) surgery (-2016) unknown) (unknown) (no (unknown) (unknown) History of (unit s (unknown) date) section unknown) (unknown) (no (unknown) (unknown) History of frequent (unit s (unknown) date) headaches unknown) (unknown) (no (unknown) (unknown) History of third (units (unknown) date) molar tooth unknown) extraction () (unknown) (no (unknown) (unknown) Hyperlipidemia (units (unknown) date) unknown) (unknown) (no (unknown) (unknown) Hypothyroidism (units (unknown) date) () unknown) (unknown) (no (unknown) (unknown) IBS (irritable bowel (uni ts (unknown) date) syndrome) () unknown) (unknown) (no (unknown) (unknown) In retrospect, there (uni ts (unknown) date) had been some unknown) long-standing sx that were likely subacute (unknown) (no (unknown) (unknown) Intake (units (unkno wn) date) unknown) (unknown) (no (unknown) (unknown) Irregular heartbeat (unit s (unknown) date) unknown) (unknown) (no (unknown) (unknown) It was acutely (units ( unknown) date) inflamed and required unknown) open procedure and speciment to path to r/o (unknown) (no (unknown) (unknown) Just got new (units (u nknown) date) mattress and frame - unknown) may also help (unknown) (no (unknown) (unknown) Loc: [facility] (units (unkno wn) date) unknown) (unknown) (no (unknown) (unknown) MM screening mammo (units (unknown) date) BI 10/01/21 Z12.31 - unknown) Encounter for screening mammogram for (unknown) (no (unknown) (unknown) Medical History (units (unknown) date) (Reviewed 10/02/21 @ unknown) 14:29 by Stefanie Kohli MD) (unknown) (no (unknown) (unknown) Mother Age: 68 (units (unknown) date) Atrial fibrillation unknown) (unknown) (no (unknown) (unknown) Needs RF on ferrous (unit s (unknown) date) gluconate (instead of unknown) ferrous sulfate, which causes more (unknown) (no (unknown) (unknown) New (units (unkno wn) date) unknown) (unknown) (no (unknown) (unknown) No Known Drug (units ( unknown) date) Allergies Allergy unknown) (Verified 07/29/21 10:12) (unknown) (no (unknown) (unknown) KULDIP on CPAP (units (un known) date) unknown) (unknown) (no (unknown) (unknown) One month post-op (units (unknown) date) check with Dr. sheriff) Sherry she was doing well. (unknown) (no (unknown) (unknown) Orders (units (unkno wn) date) unknown) (unknown) (no (unknown) (unknown) Oxygen Delivery (units (unknown) date) Method room air unknown) (unknown) (no (unknown) (unknown) PFSH (units (unkno wn) date) unknown) (unknown) (no (unknown) (unknown) PTSD (post-traumatic (uni ts (unknown) date) stress disorder) unknown) (unknown) (no (unknown) (unknown) Patient: (units (unkno wn) date) Chace Harvey unknown) MR#: [id number] (unknown) (no (unknown) (unknown) Plan (units (unkno wn) date) unknown) (unknown) (no (unknown) (unknown) Position Sitting (unit s (unknown) date) unknown) (unknown) (no (unknown) (unknown) Pre-diabetes (units (u nknown) date) unknown) (unknown) (no (unknown) (unknown) Pulse 72 (units (un known) date) unknown) (unknown) (no (unknown) (unknown) Pulse Oximetry (%) (units (unknown) date) 98 unknown) (unknown) (no (unknown) (unknown) Pulse Source (units (u nknown) date) Monitor unknown) (unknown) (no (unknown) (unknown) ROS (units (unkno wn) date) unknown) (unknown) (no (unknown) (unknown) ROS Narrative (units ( unknown) date) unknown) (unknown) (no (unknown) (unknown) ROS Narrative: (units (unknown) date) unknown) (unknown) (no (unknown) (unknown) Reason For Visit (units (unknown) date) unknown) (unknown) (no (unknown) (unknown) Recheck annualy (units (unknown) date) (April for her unknown) routine annual) or prn sooner (unknown) (no (unknown) (unknown) Recheck labs for (units (unknown) date) anemia, abn LFT's and unknown) A1c for IFG (unknown) (no (unknown) (unknown) Refilled (units (unkno wn) date) unknown) (unknown) (no (unknown) (unknown) Respiration 16 (units (unknown) date) unknown) (unknown) (no (unknown) (unknown) She has returned to (unit s (unknown) date) work on Jul 06 and unknown) it's going well (unknown) (no (unknown) (unknown) She is having (units ( unknown) date) problems with her unknown) machine but they are in process of fixing it (unknown) (no (unknown) (unknown) Signed By: (units (unk nown) date) unknown) (unknown) (no (unknown) (unknown) Sleep apnea (-2016) (unit s (unknown) date) unknown) (unknown) (no (unknown) (unknown) Smoking Status: (units (unknown) date) Never smoker unknown) (unknown) (no (unknown) (unknown) Social History (units (unknown) date) unknown) (unknown) (no (unknown) (unknown) Status post tubal (units (unknown) date) ligation (-2003) unknown) (unknown) (no (unknown) (unknown) Surgical History (units (unknown) date) (Reviewed 10/02/21 @ unknown) 14:30 by Stefanie Kohli MD) (unknown) (no (unknown) (unknown) Temp 96.9 F L (units (unknown) date) unknown) (unknown) (no (unknown) (unknown) Temp Source (units (un known) date) Temporal Artery Scan unknown) (unknown) (no (unknown) (unknown) This note may have (units (unknown) date) been all or partially unknown) generated using voice recognition (unknown) (no (unknown) (unknown) Tobacco + Substance (unit s (unknown) date) Use unknown) (unknown) (no (unknown) (unknown) Tobacco Status (units (unknown) date) unknown) (unknown) (no (unknown) (unknown) Ulnar neuropathy (units (unknown) date) unknown) (unknown) (no (unknown) (unknown) Visit Reasons: Med (units (unknown) date) review and follow up unknown) 04 (unknown) (no (unknown) (unknown) Vitals (units (unkno wn) date) unknown) (unknown) (no (unknown) (unknown) Weight 242 lb 6 (units (unknown) date) oz unknown) (unknown) (no (unknown) (unknown) Would like ferrous (units (unknown) date) gluconate instead unknown) (unknown) (no (unknown) (unknown) alcohol intake: (units (unknown) date) never unknown) (unknown) (no (unknown) (unknown) as per HPI (units (unk nown) date) unknown) (unknown) (no (unknown) (unknown) cholecystitis. (units (unknown) date) unknown) (unknown) (no (unknown) (unknown) ferrous gluconate (units (unknown) date) 324 mg PO DAILY 90 unknown) tabs 3RF (unknown) (no (unknown) (unknown) ferrous sulfate (units (unknown) date) (Iron (ferrous unknown) sulfate)) (unknown) (no (unknown) (unknown) have occurred. If (units (unknown) date) there are any unknown) questions, please contact the Medical Records (unknown) (no (unknown) (unknown) household members: (units (unknown) date) other unknown) (unknown) (no (unknown) (unknown) hydrochlorothiazide (unit s (unknown) date) unknown) (unknown) (no (unknown) (unknown) is here for (units (un known) date) unknown) (unknown) (no (unknown) (unknown) malignancy. (units (un known) date) unknown) (unknown) (no (unknown) (unknown) malignant neoplasm (units (unknown) date) of breast unknown) (unknown) (no (unknown) (unknown) may occur. (units (unk nown) date) Occasional wrong-word unknown) or 'sound-alike' substitutions may have (unknown) (no (unknown) (unknown) occurred due to the (unit s (unknown) date) inherent limitations unknown) of voice recognition software. Please (unknown) (no (unknown) (unknown) read the note (units ( unknown) date) carefully and unknown) recognize, using context, where these substitutions (unknown) (no (unknown) (unknown) side effects) 325 mg (uni ts (unknown) date) unknown) (unknown) (no (unknown) (unknown) software. Although (units (unknown) date) every effort is made unknown) to edit content, manager union errors (unknown) (no (unknown) (unknown) unspecified, E16.2 - (uni ts (unknown) date) Hypoglycemia, unknown) unspecified, E78.5 - Hyperlipidemia, (unknown) (no (unknown) (unknown) unspecified, I10 - (units (unknown) date) Essential (primary) unknown) hypertension, R73.03 - Prediabetes Result panel 11 (unknown) (no (unknown) (unknown) (no value) (units (unk nown) date) unknown) (unknown) (no (unknown) (unknown) Medications: (units (u nknown) date) unknown) (unknown) (no (unknown) (unknown) Orders: (units (unkno wn) date) unknown) (unknown) (no (unknown) (unknown) Qualifiers: (units (un known) date) unknown) (unknown) (no (unknown) (unknown) Status: Acute (units ( unknown) date) unknown) (unknown) (no (unknown) (unknown) Status: None (units (u nknown) date) unknown) (unknown) (no (unknown) (unknown) (no value) (units (unk nown) date) unknown) (unknown) (no (unknown) (unknown) (no value) (units (unk nown) date) unknown) (unknown) (no (unknown) (unknown) 10/02/21 (units (unkno wn) date) unknown) (unknown) (no (unknown) (unknown) 13:46 (units (unkno wn) date) unknown) (unknown) (no (unknown) (unknown) APPOINTMENT DUE FOR (unit s (unknown) date) FURTHER REFILLS. unknown) THANK YOU! 25 mg PO DAILY 90 tabs 3RF (unknown) (no (unknown) (unknown) [place] [id number] (unit s (unknown) date) unknown) (unknown) (no (unknown) (unknown) Diabetes mellitus (units (unknown) date) unknown) (unknown) (no (unknown) (unknown) Discontinued Reason: (uni ts (unknown) date) Patient Refused 325 unknown) mg PO DAILY 30 tabs 0RF (unknown) (no (unknown) (unknown) Draft (units (unkno wn) date) unknown) (unknown) (no (unknown) (unknown) Family Practice (units (unknown) date) Office Visit unknown) (unknown) (no (unknown) (unknown) [facility]) (unknown) (no (unknown) (unknown) High cholesterol (units (unknown) date) unknown) (unknown) (no (unknown) (unknown) Hypertension (units (u nknown) date) unknown) (unknown) (no (unknown) (unknown) Iron deficiency (units (unknown) date) anemia type: unknown) inadequate dietary iron intake Qualified (unknown) (no (unknown) (unknown) Obesity (units (unkno wn) date) unknown) (unknown) (no (unknown) (unknown) Stroke (units (unkno wn) date) unknown) (unknown) (no (unknown) (unknown) (no value) (units (unk nown) date) unknown) (unknown) (no (unknown) (unknown) (1) Follow up: (units (unknown) date) unknown) (unknown) (no (unknown) (unknown) (2) Iron deficiency (unit s (unknown) date) anemia: unknown) (unknown) (no (unknown) (unknown) (3) Acquired (units (u nknown) date) hypothyroidism: unknown) (unknown) (no (unknown) (unknown) (4) Obstructive (units (unknown) date) sleep apnea syndrome: unknown) (unknown) (no (unknown) (unknown) [id number] (units (unkno wn) date) unknown) (unknown) (no (unknown) (unknown) 10/02/21 (units (unkno wn) date) unknown) (unknown) (no (unknown) (unknown) 1. Medication review (uni ts (unknown) date) unknown) (unknown) (no (unknown) (unknown) 2.Recent open (units ( unknown) date) cholecystectomy unknown) (unknown) (no (unknown) (unknown) 3. KULDIP (units (unkno wn) date) unknown) (unknown) (no (unknown) (unknown) 4. Hypothyroid (units (unknown) date) unknown) (unknown) (no (unknown) (unknown) 5. Fe - deficiency (units (unknown) date) anemia unknown) (unknown) (no (unknown) (unknown) 6. Behavioral health (uni ts (unknown) date) - anxiety/depression unknown) (unknown) (no (unknown) (unknown) Abd - soft, NT with (unit s (unknown) date) active BS; R unknown) sub-costal incision is healing nicely (unknown) (no (unknown) (unknown) Abdominal pain (units (unknown) date) unknown) (unknown) (no (unknown) (unknown) Abnormal Pap smear (units (unknown) date) of cervix () unknown) (unknown) (no (unknown) (unknown) Age/Sex: 45 / F (units (unknown) date) Date of Service: unknown) (unknown) (no (unknown) (unknown) Allergies (units (unkn own) date) unknown) (unknown) (no (unknown) (unknown) Anemia (units (unkno wn) date) unknown) (unknown) (no (unknown) (unknown) Anemia, unspecified (unit s (unknown) date) unknown) (unknown) (no (unknown) (unknown) Anesthesia (units (unk nown) date) unknown) (unknown) (no (unknown) (unknown) Ankle pain () (units (unknown) date) unknown) (unknown) (no (unknown) (unknown) Anxiety (units (unkno wn) date) unknown) (unknown) (no (unknown) (unknown) Assessment + Plan (units (unknown) date) unknown) (unknown) (no (unknown) (unknown) Attending Dr: Stefanie Zaldivar (uni ts (unknown) date) Seun FRAUSTO unknown) (unknown) (no (unknown) (unknown) BMI 41.5 (units (un known) date) unknown) (unknown) (no (unknown) (unknown) BP 120/80 (units (u nknown) date) unknown) (unknown) (no (unknown) (unknown) Hernandez's palsy (units (u nknown) date) unknown) (unknown) (no (unknown) (unknown) Blood Pressure (units (unknown) date) Location Lt unknown) brachial (unknown) (no (unknown) (unknown) Brother No (units (unknown) date) problems noted. unknown) (unknown) (no (unknown) (unknown) Chickenpox (units (unk nown) date) unknown) (unknown) (no (unknown) (unknown) Chief Complaint (units (unknown) date) unknown) (unknown) (no (unknown) (unknown) Chief Complaint: (units (unknown) date) medication review and unknown) follow-up (unknown) (no (unknown) (unknown) Cholescystectomy (units (unknown) date) scar healing well unknown) (unknown) (no (unknown) (unknown) Chronic back pain (units (unknown) date) unknown) (unknown) (no (unknown) (unknown) Code(s): D50.8 - (units (unknown) date) Other iron deficiency unknown) anemias (unknown) (no (unknown) (unknown) Complete Blood Count (uni ts (unknown) date) AUTO DIFF 10/02/21 unknown) D50.9 - Iron deficiency anemia, (unknown) (no (unknown) (unknown) Comprehensive (units ( unknown) date) Metabolic Panel unknown) 10/02/21 D50.9 - Iron deficiency anemia, (unknown) (no (unknown) (unknown) Cor RRR no murmur (units (unknown) date) unknown) (unknown) (no (unknown) (unknown) : 1975 (units (unknown) date) Acct:[id number] unknown) (unknown) (no (unknown) (unknown) Chace is a 45 yo (units (unknown) date) lady with a hx of MMP unknown) including HTN, and hypothyroidism so she (unknown) (no (unknown) (unknown) Depression (units (unk nown) date) unknown) (unknown) (no (unknown) (unknown) Dept at (units (unkno wn) date) . unknown) (unknown) (no (unknown) (unknown) Details: (units (unkno wn) date) unknown) (unknown) (no (unknown) (unknown) Diarrhea (units (unkno wn) date) unknown) (unknown) (no (unknown) (unknown) Discontinued (units (u nknown) date) unknown) (unknown) (no (unknown) (unknown) Documented By: (units (unknown) date) Stefanie Kohli MD unknown) 10/02/21 1336 (unknown) (no (unknown) (unknown) Dyslexia (units (unkno wn) date) unknown) (unknown) (no (unknown) (unknown) Essential (units (unkn own) date) hypertension unknown) (unknown) (no (unknown) (unknown) Exam (units (unkno wn) date) unknown) (unknown) (no (unknown) (unknown) Exam Narrative (units (unknown) date) unknown) (unknown) (no (unknown) (unknown) Exam Narrative: (units (unknown) date) unknown) (unknown) (no (unknown) (unknown) Family History (units (unknown) date) (Reviewed 10/02/21 @ unknown) 14:30 by Stefanie Kohli MD) (unknown) (no (unknown) (unknown) Father No (units (unknown) date) problems noted. unknown) (unknown) (no (unknown) (unknown) Feeling fine (units (u nknown) date) unknown) (unknown) (no (unknown) (unknown) Fracture (-2017) (units (unknown) date) unknown) (unknown) (no (unknown) (unknown) Gen - pleasant 45 yo (uni ts (unknown) date) female in NAD unknown) (unknown) (no (unknown) (unknown) Gets these (units (unk nown) date) medications through unknown) Behavioral Health and is seeing counselor (unknown) (no (unknown) (unknown) Grandfather (units (un known) date) Cancer unknown) (unknown) (no (unknown) (unknown) Grandmother (units (un known) date) Heart unknown) disease (unknown) (no (unknown) (unknown) 3 (units (unkn own) date) unknown) (unknown) (no (unknown) (unknown) HCTZ 25 mg (units (unk nown) date) unknown) (unknown) (no (unknown) (unknown) HPI (units (unkno wn) date) unknown) (unknown) (no (unknown) (unknown) HSV (herpes simplex (unit s (unknown) date) virus) infection unknown) () (unknown) (no (unknown) (unknown) Has her Rx with 3 RF (uni ts (unknown) date) unknown) (unknown) (no (unknown) (unknown) Hearing deficit (units (unknown) date) unknown) (unknown) (no (unknown) (unknown) Height 5 ft 4 in (unit s (unknown) date) unknown) (unknown) (no (unknown) (unknown) Hemoglobin A1C% w (units (unknown) date) Est Avg Glu 10/02/21 unknown) D50.9 - Iron deficiency anemia, (unknown) (no (unknown) (unknown) History of ankle (units (unknown) date) surgery (-2016) unknown) (unknown) (no (unknown) (unknown) History of (unit s (unknown) date) section unknown) (unknown) (no (unknown) (unknown) History of frequent (unit s (unknown) date) headaches unknown) (unknown) (no (unknown) (unknown) History of third (units (unknown) date) molar tooth unknown) extraction () (unknown) (no (unknown) (unknown) Hyperlipidemia (units (unknown) date) unknown) (unknown) (no (unknown) (unknown) Hypothyroidism (units (unknown) date) () unknown) (unknown) (no (unknown) (unknown) IBS (irritable bowel (uni ts (unknown) date) syndrome) () unknown) (unknown) (no (unknown) (unknown) In retrospect, there (uni ts (unknown) date) had been some unknown) long-standing sx that were likely subacute (unknown) (no (unknown) (unknown) Intake (units (unkno wn) date) unknown) (unknown) (no (unknown) (unknown) Irregular heartbeat (unit s (unknown) date) unknown) (unknown) (no (unknown) (unknown) It was acutely (units ( unknown) date) inflamed and required unknown) open procedure and speciment to path to r/o (unknown) (no (unknown) (unknown) Just got new (units (u nknown) date) mattress and frame - unknown) may also help (unknown) (no (unknown) (unknown) Loc: [facility] (units (unkno wn) date) unknown) (unknown) (no (unknown) (unknown) Lungs clear (units (un known) date) unknown) (unknown) (no (unknown) (unknown) MM screening mammo (units (unknown) date) BI 10/01/21 Z12.31 - unknown) Encounter for screening mammogram for (unknown) (no (unknown) (unknown) Medical History (units (unknown) date) (Reviewed 10/02/21 @ unknown) 14:29 by Stefanie Kohli MD) (unknown) (no (unknown) (unknown) Mother Age: 68 (units (unknown) date) Atrial fibrillation unknown) (unknown) (no (unknown) (unknown) Neck - supple, no (units (unknown) date) adenopathy, normal unknown) thyroid (unknown) (no (unknown) (unknown) Needs RF on ferrous (unit s (unknown) date) gluconate (instead of unknown) ferrous sulfate, which causes more (unknown) (no (unknown) (unknown) Neuro grossly intact (uni ts (unknown) date) unknown) (unknown) (no (unknown) (unknown) New (units (unkno wn) date) unknown) (unknown) (no (unknown) (unknown) No Known Drug (units ( unknown) date) Allergies Allergy unknown) (Verified 07/29/21 10:12) (unknown) (no (unknown) (unknown) KULDIP on CPAP (units (un known) date) unknown) (unknown) (no (unknown) (unknown) One month post-op (units (unknown) date) check with Dr. sheriff) Sherry she was doing well. (unknown) (no (unknown) (unknown) Orders (units (unkno wn) date) unknown) (unknown) (no (unknown) (unknown) Oxygen Delivery (units (unknown) date) Method room air unknown) (unknown) (no (unknown) (unknown) PFSH (units (unkno wn) date) unknown) (unknown) (no (unknown) (unknown) PTSD (post-traumatic (uni ts (unknown) date) stress disorder) unknown) (unknown) (no (unknown) (unknown) Patient: (units (unkno wn) date) Chace Harvey M unknown) MR#: [id number] (unknown) (no (unknown) (unknown) Plan (units (unkno wn) date) unknown) (unknown) (no (unknown) (unknown) Position Sitting (unit s (unknown) date) unknown) (unknown) (no (unknown) (unknown) Pre-diabetes (units (u nknown) date) unknown) (unknown) (no (unknown) (unknown) Pulse 72 (units (un known) date) unknown) (unknown) (no (unknown) (unknown) Pulse Oximetry (%) (units (unknown) date) 98 unknown) (unknown) (no (unknown) (unknown) Pulse Source (units (u nknown) date) Monitor unknown) (unknown) (no (unknown) (unknown) ROS (units (unkno wn) date) unknown) (unknown) (no (unknown) (unknown) ROS Narrative (units ( unknown) date) unknown) (unknown) (no (unknown) (unknown) ROS Narrative: (units (unknown) date) unknown) (unknown) (no (unknown) (unknown) Reason For Visit (units (unknown) date) unknown) (unknown) (no (unknown) (unknown) Recheck annually (units (unknown) date) (April for her unknown) routine annual) or prn sooner (unknown) (no (unknown) (unknown) Recheck labs for (units (unknown) date) anemia, abn LFT's and unknown) A1c for IFG (unknown) (no (unknown) (unknown) Refilled (units (unkno wn) date) unknown) (unknown) (no (unknown) (unknown) Respiration 16 (units (unknown) date) unknown) (unknown) (no (unknown) (unknown) She has returned to (unit s (unknown) date) work on Jul 06 and unknown) it's going well (unknown) (no (unknown) (unknown) She is having (units ( unknown) date) problems with her unknown) machine but they are in process of fixing it (unknown) (no (unknown) (unknown) Signed By: (units (unk nown) date) unknown) (unknown) (no (unknown) (unknown) Sleep apnea (-2016) (unit s (unknown) date) unknown) (unknown) (no (unknown) (unknown) Smoking Status: (units (unknown) date) Never smoker unknown) (unknown) (no (unknown) (unknown) Social History (units (unknown) date) unknown) (unknown) (no (unknown) (unknown) Status post tubal (units (unknown) date) ligation (-2003) unknown) (unknown) (no (unknown) (unknown) Surgical History (units (unknown) date) (Reviewed 10/02/21 @ unknown) 14:30 by Stefanie Kohli MD) (unknown) (no (unknown) (unknown) Temp 96.9 F L (units (unknown) date) unknown) (unknown) (no (unknown) (unknown) Temp Source (units (un known) date) Temporal Artery Scan unknown) (unknown) (no (unknown) (unknown) This note may have (units (unknown) date) been all or partially unknown) generated using voice recognition (unknown) (no (unknown) (unknown) Tobacco + Substance (unit s (unknown) date) Use unknown) (unknown) (no (unknown) (unknown) Tobacco Status (units (unknown) date) unknown) (unknown) (no (unknown) (unknown) Ulnar neuropathy (units (unknown) date) unknown) (unknown) (no (unknown) (unknown) Visit Reasons: Med (units (unknown) date) review and follow up unknown) 04 (unknown) (no (unknown) (unknown) Vitals (units (unkno wn) date) unknown) (unknown) (no (unknown) (unknown) Weight 242 lb 6 (units (unknown) date) oz unknown) (unknown) (no (unknown) (unknown) Would like ferrous (units (unknown) date) gluconate instead unknown) (unknown) (no (unknown) (unknown) alcohol intake: (units (unknown) date) never unknown) (unknown) (no (unknown) (unknown) as per HPI (units (unk nown) date) unknown) (unknown) (no (unknown) (unknown) cholecystitis. (units (unknown) date) unknown) (unknown) (no (unknown) (unknown) ferrous gluconate (units (unknown) date) 324 mg PO DAILY 90 unknown) tabs 3RF (unknown) (no (unknown) (unknown) ferrous sulfate (units (unknown) date) (Iron (ferrous unknown) sulfate)) (unknown) (no (unknown) (unknown) have occurred. If (units (unknown) date) there are any unknown) questions, please contact the Medical Records (unknown) (no (unknown) (unknown) household members: (units (unknown) date) other unknown) (unknown) (no (unknown) (unknown) hydrochlorothiazide (unit s (unknown) date) unknown) (unknown) (no (unknown) (unknown) is here for (units (un known) date) unknown) (unknown) (no (unknown) (unknown) malignancy. (units (un known) date) unknown) (unknown) (no (unknown) (unknown) malignant neoplasm (units (unknown) date) of breast unknown) (unknown) (no (unknown) (unknown) may occur. (units (unk nown) date) Occasional wrong-word unknown) or 'sound-alike' substitutions may have (unknown) (no (unknown) (unknown) occurred due to the (unit s (unknown) date) inherent limitations unknown) of voice recognition software. Please (unknown) (no (unknown) (unknown) read the note (units ( unknown) date) carefully and unknown) recognize, using context, where these substitutions (unknown) (no (unknown) (unknown) side effects) 325 mg (uni ts (unknown) date) unknown) (unknown) (no (unknown) (unknown) software. Although (units (unknown) date) every effort is made unknown) to edit content, manager union errors (unknown) (no (unknown) (unknown) unspecified, E16.2 - (uni ts (unknown) date) Hypoglycemia, unknown) unspecified, E78.5 - Hyperlipidemia, (unknown) (no (unknown) (unknown) unspecified, I10 - (units (unknown) date) Essential (primary) unknown) hypertension, R73.03 - Prediabetes Result panel 12 (unknown) (no (unknown) (unknown) (no value) (units (unk nown) date) unknown) (unknown) (no (unknown) (unknown) Medications: (units (u nknown) date) unknown) (unknown) (no (unknown) (unknown) Orders: (units (unkno wn) date) unknown) (unknown) (no (unknown) (unknown) Qualifiers: (units (un known) date) unknown) (unknown) (no (unknown) (unknown) Status: Acute (units ( unknown) date) unknown) (unknown) (no (unknown) (unknown) Status: None (units (u nknown) date) unknown) (unknown) (no (unknown) (unknown) (no value) (units (unk nown) date) unknown) (unknown) (no (unknown) (unknown) (no value) (units (unk nown) date) unknown) (unknown) (no (unknown) (unknown) 10/02/21 (units (unkno wn) date) unknown) (unknown) (no (unknown) (unknown) 10/04/21 1820 (units ( unknown) date) unknown) (unknown) (no (unknown) (unknown) 13:46 (units (unkno wn) date) unknown) (unknown) (no (unknown) (unknown) APPOINTMENT DUE FOR (unit s (unknown) date) FURTHER REFILLS. unknown) THANK YOU! 25 mg PO DAILY 90 tabs 3RF (unknown) (no (unknown) (unknown) [place] [id number] (unit s (unknown) date) unknown) (unknown) (no (unknown) (unknown) Anemia type: iron (units (unknown) date) deficiency Iron unknown) deficiency anemia type: unspecified (unknown) (no (unknown) (unknown) Diabetes mellitus (units (unknown) date) unknown) (unknown) (no (unknown) (unknown) Discontinued Reason: (uni ts (unknown) date) Patient Refused 325 unknown) mg PO DAILY 30 tabs 0RF (unknown) (no (unknown) (unknown) Family Practice (units (unknown) date) Office Visit unknown) (unknown) (no (unknown) (unknown) [facility] unknown) (unknown) (no (unknown) (unknown) High cholesterol (units (unknown) date) unknown) (unknown) (no (unknown) (unknown) Hypertension (units (u nknown) date) unknown) (unknown) (no (unknown) (unknown) Iron deficiency (units (unknown) date) anemia type: unknown) inadequate dietary iron intake Qualified (unknown) (no (unknown) (unknown) Obesity (units (unkno wn) date) unknown) (unknown) (no (unknown) (unknown) Signed (units (unkno wn) date) unknown) (unknown) (no (unknown) (unknown) Stroke (units (unkno wn) date) unknown) (unknown) (no (unknown) (unknown) (no value) (units (unk nown) date) unknown) (unknown) (no (unknown) (unknown) (1) Follow up: (units (unknown) date) unknown) (unknown) (no (unknown) (unknown) (2) Iron deficiency (unit s (unknown) date) anemia: unknown) (unknown) (no (unknown) (unknown) (3) Acquired (units (u nknown) date) hypothyroidism: unknown) (unknown) (no (unknown) (unknown) (4) Obstructive (units (unknown) date) sleep apnea syndrome: unknown) (unknown) (no (unknown) (unknown) (5) Pre-diabetes: (units (unknown) date) unknown) (unknown) (no (unknown) (unknown) (6) Anemia, (units (un known) date) unspecified: unknown) (unknown) (no (unknown) (unknown) (7) Essential (units ( unknown) date) hypertension: unknown) (unknown) (no (unknown) (unknown) - Anemia, (units (unkno wn) date) unspecified, E03.9 - unknown) Hypothyroidism, unspecified, G47.33 - Obstructive (unknown) (no (unknown) (unknown) - Prediabetes (units ( unknown) date) unknown) (unknown) (no (unknown) (unknown) [id number] (units (unkno wn) date) unknown) (unknown) (no (unknown) (unknown) 10/02/21 (units (unkno wn) date) unknown) (unknown) (no (unknown) (unknown) 1. Medication review (uni ts (unknown) date) unknown) (unknown) (no (unknown) (unknown) 2.Recent open (units ( unknown) date) cholecystectomy unknown) (unknown) (no (unknown) (unknown) 3. KULDIP (units (unkno wn) date) unknown) (unknown) (no (unknown) (unknown) 4. Hypothyroid (units (unknown) date) unknown) (unknown) (no (unknown) (unknown) 5. Fe - deficiency (units (unknown) date) anemia unknown) (unknown) (no (unknown) (unknown) 6. Behavioral health (uni ts (unknown) date) - anxiety/depression unknown) (unknown) (no (unknown) (unknown) Abd - soft, NT with (unit s (unknown) date) active BS; R unknown) sub-costal incision is healing nicely (unknown) (no (unknown) (unknown) Abdominal pain (units (unknown) date) unknown) (unknown) (no (unknown) (unknown) Abnormal Pap smear (units (unknown) date) of cervix (-2013) unknown) (unknown) (no (unknown) (unknown) Age/Sex: 45 / F (units (unknown) date) Date of Service: unknown) (unknown) (no (unknown) (unknown) Allergies (units (unkn own) date) unknown) (unknown) (no (unknown) (unknown) Anemia (units (unkno wn) date) unknown) (unknown) (no (unknown) (unknown) Anemia, unspecified (unit s (unknown) date) unknown) (unknown) (no (unknown) (unknown) Anemia, unspecified, (uni ts (unknown) date) E03.9 - unknown) Hypothyroidism, unspecified, G47.33 - Obstructive (unknown) (no (unknown) (unknown) Anesthesia (units (unk nown) date) unknown) (unknown) (no (unknown) (unknown) Ankle pain (-2017) (units (unknown) date) unknown) (unknown) (no (unknown) (unknown) Anxiety (units (unkno wn) date) unknown) (unknown) (no (unknown) (unknown) Assessment + Plan (units (unknown) date) unknown) (unknown) (no (unknown) (unknown) Attending Dr: Stefanie Zaldivar (uni ts (unknown) date) Seun FRAUSTO unknown) (unknown) (no (unknown) (unknown) BMI 41.5 (units (un known) date) unknown) (unknown) (no (unknown) (unknown) BP 120/80 (units (u nknown) date) unknown) (unknown) (no (unknown) (unknown) Hernandez's palsy (units (u nknown) date) unknown) (unknown) (no (unknown) (unknown) Blood Pressure (units (unknown) date) Location Lt unknown) brachial (unknown) (no (unknown) (unknown) Brother No (units (unknown) date) problems noted. unknown) (unknown) (no (unknown) (unknown) Chickenpox (units (unk nown) date) unknown) (unknown) (no (unknown) (unknown) Chief Complaint (units (unknown) date) unknown) (unknown) (no (unknown) (unknown) Chief Complaint: (units (unknown) date) medication review and unknown) follow-up (unknown) (no (unknown) (unknown) Cholecystectomy scar (uni ts (unknown) date) healing well unknown) (unknown) (no (unknown) (unknown) Chronic back pain (units (unknown) date) unknown) (unknown) (no (unknown) (unknown) Code(s): D50.8 - (units (unknown) date) Other iron deficiency unknown) anemias (unknown) (no (unknown) (unknown) Complete Blood Count (uni ts (unknown) date) AUTO DIFF 10/02/21 unknown) D50.9 - Iron deficiency anemia, (unknown) (no (unknown) (unknown) Complete Blood Count (uni ts (unknown) date) AUTO DIFF Today D50.8 unknown) - Other iron deficiency anemias, (unknown) (no (unknown) (unknown) Comprehensive (units ( unknown) date) Metabolic Panel unknown) 10/02/21 D50.9 - Iron deficiency anemia, (unknown) (no (unknown) (unknown) Comprehensive (units (u nknown) date) Metabolic Panel Today unknown) D50.8 - Other iron deficiency anemias, D64.9 (unknown) (no (unknown) (unknown) Continue her current (uni ts (unknown) date) medications for unknown) anemia, hypothyroid, anxiety/depression (unknown) (no (unknown) (unknown) Cor RRR no murmur (units (unknown) date) unknown) (unknown) (no (unknown) (unknown) D64.9 - Anemia, (units (unknown) date) unspecified, E03.9 - unknown) Hypothyroidism, unspecified, G47.33 - (unknown) (no (unknown) (unknown) : 1975 (units (unknown) date) Acct:[id number] unknown) (unknown) (no (unknown) (unknown) Chace is a 45 yo (units (unknown) date) lady with a hx of MMP unknown) including HTN, and hypothyroidism so she (unknown) (no (unknown) (unknown) Depression (units (unk nown) date) unknown) (unknown) (no (unknown) (unknown) Dept at (units (unkno wn) date) . unknown) (unknown) (no (unknown) (unknown) Details: (units (unkno wn) date) unknown) (unknown) (no (unknown) (unknown) Diarrhea (units (unkno wn) date) unknown) (unknown) (no (unknown) (unknown) Discontinued (units (u nknown) date) unknown) (unknown) (no (unknown) (unknown) Documented By: (units (unknown) date) Stefanie Kohli MD unknown) 10/02/21 1336 (unknown) (no (unknown) (unknown) Dyslexia (units (unkno wn) date) unknown) (unknown) (no (unknown) (unknown) Essential (units (unkn own) date) hypertension unknown) (unknown) (no (unknown) (unknown) Exam (units (unkno wn) date) unknown) (unknown) (no (unknown) (unknown) Exam Narrative (units (unknown) date) unknown) (unknown) (no (unknown) (unknown) Exam Narrative: (units (unknown) date) unknown) (unknown) (no (unknown) (unknown) Family History (units (unknown) date) (Reviewed 10/02/21 @ unknown) 14:30 by Stefanie Kohli MD) (unknown) (no (unknown) (unknown) Father No (units (unknown) date) problems noted. unknown) (unknown) (no (unknown) (unknown) Feeling fine (units (u nknown) date) unknown) (unknown) (no (unknown) (unknown) Fracture (-2017) (units (unknown) date) unknown) (unknown) (no (unknown) (unknown) Gen - pleasant 45 yo (uni ts (unknown) date) female in NAD unknown) (unknown) (no (unknown) (unknown) Gets these (units (unk nown) date) medications through unknown) Behavioral Health and is seeing counselor (unknown) (no (unknown) (unknown) Grandfather (units (un known) date) Cancer unknown) (unknown) (no (unknown) (unknown) Grandmother (units (un known) date) Heart unknown) disease (unknown) (no (unknown) (unknown) 3 (units (unkn own) date) unknown) (unknown) (no (unknown) (unknown) HCTZ 25 mg (units (unk nown) date) unknown) (unknown) (no (unknown) (unknown) HPI (units (unkno wn) date) unknown) (unknown) (no (unknown) (unknown) HSV (herpes simplex (unit s (unknown) date) virus) infection unknown) () (unknown) (no (unknown) (unknown) Has her Rx with 3 RF (uni ts (unknown) date) unknown) (unknown) (no (unknown) (unknown) Hearing deficit (units (unknown) date) unknown) (unknown) (no (unknown) (unknown) Height 5 ft 4 in (unit s (unknown) date) unknown) (unknown) (no (unknown) (unknown) Hemoglobin A1C% w (units (unknown) date) Est Avg Glu 10/02/21 unknown) D50.9 - Iron deficiency anemia, (unknown) (no (unknown) (unknown) Hemoglobin A1C% w Est (uni ts (unknown) date) Avg Glu Today D50.8 - unknown) Other iron deficiency anemias, D64.9 (unknown) (no (unknown) (unknown) History of ankle (units (unknown) date) surgery (-2017) unknown) (unknown) (no (unknown) (unknown) History of (unit s (unknown) date) section unknown) (unknown) (no (unknown) (unknown) History of frequent (unit s (unknown) date) headaches unknown) (unknown) (no (unknown) (unknown) History of third (units (unknown) date) molar tooth unknown) extraction (-2000) (unknown) (no (unknown) (unknown) Hyperlipidemia (units (unknown) date) unknown) (unknown) (no (unknown) (unknown) Hypothyroidism (units (unknown) date) () unknown) (unknown) (no (unknown) (unknown) IBS (irritable bowel (uni ts (unknown) date) syndrome) () unknown) (unknown) (no (unknown) (unknown) In retrospect, there (uni ts (unknown) date) had been some unknown) long-standing sx that were likely subacute (unknown) (no (unknown) (unknown) Intake (units (unkno wn) date) unknown) (unknown) (no (unknown) (unknown) Irregular heartbeat (unit s (unknown) date) unknown) (unknown) (no (unknown) (unknown) It was acutely (units ( unknown) date) inflamed and required unknown) open procedure and speciment to path to r/o (unknown) (no (unknown) (unknown) Just got new (units (u nknown) date) mattress and frame - unknown) may also help (unknown) (no (unknown) (unknown) Loc: [facility] (units (unkno wn) date) unknown) (unknown) (no (unknown) (unknown) Lungs clear (units (un known) date) unknown) (unknown) (no (unknown) (unknown) MM screening mammo (units (unknown) date) BI 10/01/21 Z12.31 - unknown) Encounter for screening mammogram for (unknown) (no (unknown) (unknown) Medical History (units (unknown) date) (Reviewed 10/02/21 @ unknown) 14:29 by Stefanie Kohli MD) (unknown) (no (unknown) (unknown) Mother Age: 68 (units (unknown) date) Atrial fibrillation unknown) (unknown) (no (unknown) (unknown) Neck - supple, no (units (unknown) date) adenopathy, normal unknown) thyroid (unknown) (no (unknown) (unknown) Needs RF on ferrous (unit s (unknown) date) gluconate (instead of unknown) ferrous sulfate, which causes more (unknown) (no (unknown) (unknown) Neuro grossly intact (uni ts (unknown) date) unknown) (unknown) (no (unknown) (unknown) New (units (unkno wn) date) unknown) (unknown) (no (unknown) (unknown) No Known Drug (units ( unknown) date) Allergies Allergy unknown) (Verified 07/29/21 10:12) (unknown) (no (unknown) (unknown) KULDIP on CPAP (units (un known) date) unknown) (unknown) (no (unknown) (unknown) Obstructive sleep (units (unknown) date) apnea (adult) unknown) (pediatric), I10 - Essential (primary) (unknown) (no (unknown) (unknown) Obtaining and/or (units (unknown) date) reviewing separately unknown) obtained history: 15 (unknown) (no (unknown) (unknown) One month post-op (units (unknown) date) check with Dr. sheriff) Sherry she was doing well. (unknown) (no (unknown) (unknown) Ordering (units (unkno wn) date) medications, tests, unknown) or procedures: 2 (unknown) (no (unknown) (unknown) Orders (units (unkno wn) date) unknown) (unknown) (no (unknown) (unknown) Oxygen Delivery (units (unknown) date) Method room air unknown) (unknown) (no (unknown) (unknown) PFSH (units (unkno wn) date) unknown) (unknown) (no (unknown) (unknown) PTSD (post-traumatic (uni ts (unknown) date) stress disorder) unknown) (unknown) (no (unknown) (unknown) Patient: (units (unkno wn) date) Chace Harvey M unknown) MR#: [id number] (unknown) (no (unknown) (unknown) Performing a (units (u nknown) date) medically appropriate unknown) exam and/or evaluation: 5 (unknown) (no (unknown) (unknown) Plan (units (unkno wn) date) unknown) (unknown) (no (unknown) (unknown) Position Sitting (unit s (unknown) date) unknown) (unknown) (no (unknown) (unknown) Pre-diabetes (units (u nknown) date) unknown) (unknown) (no (unknown) (unknown) Preparing to see the (uni ts (unknown) date) patient, i.e., chart unknown) review, review of tests: 5 (unknown) (no (unknown) (unknown) Pulse 72 (units (un known) date) unknown) (unknown) (no (unknown) (unknown) Pulse Oximetry (%) (units (unknown) date) 98 unknown) (unknown) (no (unknown) (unknown) Pulse Source (units (u nknown) date) Monitor unknown) (unknown) (no (unknown) (unknown) ROS (units (unkno wn) date) unknown) (unknown) (no (unknown) (unknown) ROS Narrative (units ( unknown) date) unknown) (unknown) (no (unknown) (unknown) ROS Narrative: (units (unknown) date) unknown) (unknown) (no (unknown) (unknown) Reason For Visit (units (unknown) date) unknown) (unknown) (no (unknown) (unknown) Recheck annually (units (unknown) date) (April for her unknown) routine annual) or prn sooner (unknown) (no (unknown) (unknown) Recheck labs for (units (unknown) date) anemia, abn LFT's and unknown) A1c for IFG (unknown) (no (unknown) (unknown) Refilled (units (unkno wn) date) unknown) (unknown) (no (unknown) (unknown) Respiration 16 (units (unknown) date) unknown) (unknown) (no (unknown) (unknown) She has returned to (unit s (unknown) date) work on Jul 06 and unknown) it's going well (unknown) (no (unknown) (unknown) She is having (units ( unknown) date) problems with her unknown) machine but they are in process of fixing it (unknown) (no (unknown) (unknown) Signed By: (units (unk nown) date) <Electronically unknown) signed by Stefanie Kohli MD> (unknown) (no (unknown) (unknown) Sleep apnea (-2016) (unit s (unknown) date) unknown) (unknown) (no (unknown) (unknown) Smoking Status: (units (unknown) date) Never smoker unknown) (unknown) (no (unknown) (unknown) Social History (units (unknown) date) unknown) (unknown) (no (unknown) (unknown) Status post tubal (units (unknown) date) ligation (-2003) unknown) (unknown) (no (unknown) (unknown) Surgical History (units (unknown) date) (Reviewed 10/02/21 @ unknown) 14:30 by Stefanie Kohli MD) (unknown) (no (unknown) (unknown) TSH w/ Reflex to FT4 (uni ts (unknown) date) Today D50.8 - Other unknown) iron deficiency anemias, D64.9 - (unknown) (no (unknown) (unknown) Temp 96.9 F L (units (unknown) date) unknown) (unknown) (no (unknown) (unknown) Temp Source (units (un known) date) Temporal Artery Scan unknown) (unknown) (no (unknown) (unknown) This note may have (units (unknown) date) been all or partially unknown) generated using voice recognition (unknown) (no (unknown) (unknown) Time Coding Minutes (unit s (unknown) date) Spent: (must be on unknown) same date of service/appointment) (unknown) (no (unknown) (unknown) Time Spent (units (unk nown) date) unknown) (unknown) (no (unknown) (unknown) Tobacco + Substance (unit s (unknown) date) Use unknown) (unknown) (no (unknown) (unknown) Tobacco Status (units (unknown) date) unknown) (unknown) (no (unknown) (unknown) Total Time: 27 (units (unknown) date) unknown) (unknown) (no (unknown) (unknown) Ulnar neuropathy (units (unknown) date) unknown) (unknown) (no (unknown) (unknown) Visit Reasons: Med (units (unknown) date) review and follow up unknown) 04 (unknown) (no (unknown) (unknown) Vitals (units (unkno wn) date) unknown) (unknown) (no (unknown) (unknown) Weight 242 lb 6 (units (unknown) date) oz unknown) (unknown) (no (unknown) (unknown) Would like ferrous (units (unknown) date) gluconate instead unknown) (unknown) (no (unknown) (unknown) alcohol intake: (units (unknown) date) never unknown) (unknown) (no (unknown) (unknown) as per HPI (units (unk nown) date) unknown) (unknown) (no (unknown) (unknown) cholecystitis. (units (unknown) date) unknown) (unknown) (no (unknown) (unknown) ferrous gluconate (units (unknown) date) 324 mg PO DAILY 90 unknown) tabs 3RF (unknown) (no (unknown) (unknown) ferrous sulfate (units (unknown) date) (Iron (ferrous unknown) sulfate)) (unknown) (no (unknown) (unknown) have occurred. If (units (unknown) date) there are any unknown) questions, please contact the Medical Records (unknown) (no (unknown) (unknown) household members: (units (unknown) date) other unknown) (unknown) (no (unknown) (unknown) hydrochlorothiazide (unit s (unknown) date) unknown) (unknown) (no (unknown) (unknown) hypertension, R73.03 (uni ts (unknown) date) - Prediabetes unknown) (unknown) (no (unknown) (unknown) iron deficiency (units (unknown) date) Qualified Code(s): unknown) D50.9 - Iron deficiency anemia, unspecified (unknown) (no (unknown) (unknown) is here for (units (un known) date) unknown) (unknown) (no (unknown) (unknown) malignancy. (units (un known) date) unknown) (unknown) (no (unknown) (unknown) malignant neoplasm (units (unknown) date) of breast unknown) (unknown) (no (unknown) (unknown) may occur. (units (unk nown) date) Occasional wrong-word unknown) or 'sound-alike' substitutions may have (unknown) (no (unknown) (unknown) occurred due to the (unit s (unknown) date) inherent limitations unknown) of voice recognition software. Please (unknown) (no (unknown) (unknown) read the note (units ( unknown) date) carefully and unknown) recognize, using context, where these substitutions (unknown) (no (unknown) (unknown) side effects) 325 mg (uni ts (unknown) date) unknown) (unknown) (no (unknown) (unknown) sleep apnea (adult) (unit s (unknown) date) (pediatric), I10 - unknown) Essential (primary) hypertension, R73.03 (unknown) (no (unknown) (unknown) software. Although (units (unknown) date) every effort is made unknown) to edit content, manager union errors (unknown) (no (unknown) (unknown) unspecified, E16.2 - (uni ts (unknown) date) Hypoglycemia, unknown) unspecified, E78.5 - Hyperlipidemia, (unknown) (no (unknown) (unknown) unspecified, I10 - (units (unknown) date) Essential (primary) unknown) hypertension, R73.03 - Prediabetes Social History date description facility (no date) Never smoked tobacco ([facility] Vital Signs date measurement value units +0000 BMI BMI 41.5 kg/m2 +0000 BP_diastolic BP_diastolic 80 mm[H g] +0000 BP_systolic BP_systolic 120 mm[Hg] +0000 heart_rate heart_rate 72 /min +0000 height_metric height_metric 162.56 cm +0000 height_standard height_standard 64 in +0000 respiration_rate respiration_rate 16 /min +0000 temperature_metric temperature_metric 36.06 C +0000 temperature_standard temperature_standard 9 6.9 F +0000 weight_metric weight_metric 49.87 kg +0000 weight_standard weight_standard 109.94 lb
--- NOTE | 2021-12-25 22:31 | ED Physician Documentation ---
History of Present Illness - Stated complaint Stated Complaint: WANTS A C+ TEST - Chief complaint Chief Complaint: Resp - Additonal information Additional information: 46-year-old female who is obese and has a history of hypertension as well as asthma and sleep apnea presents the emergency department for a few days of cough with clear sputum fatigue and myalgias. No fevers. Fully vaccinated for COVID- 19. She did take a COVID test at home today that was positive. She summoned EMS because she does not feel that the test is accurate. She is interested in outpatient oral antiviral therapy. Review of Systems Constitutional: reports: Chills, Myalgias, Fatigue Nose: reports: Congestion Throat: reports: Reviewed and negative Cardiac: denies: Chest pain / pressure, Palpitations Respiratory: reports: Cough. denies: Dyspnea, Hemoptysis, Wheezing GI: reports: Reviewed and negative : reports: Reviewed and negative Skin: reports: Reviewed and negative Musculoskeletal: reports: Reviewed and negative PD PAST MEDICAL HISTORY - Past Medical History Endocrine/Autoimmune: HyPOthyroidism Psych: Depression, Anxiety - Past Surgical History Past Surgical History: Yes Ortho: Other /MAIN [facility]ION: Tubal ligation - Present Medications Home Medications: Ambulatory Orders Medication Instructions Recorded Confirmed Ferrous Sulfate 325 mg PO DAILY 12/20/16 08/17/18 Levothyroxine [Synthroid] 75 mcg PO QDAC 12/20/16 08/17/18 Sertraline HCl [Zoloft] 150 mg PO DAILY 12/20/16 08/17/18 busPIRone [Buspar] 7.5 mg PO BID 02/03/19 02/03/19 Erythromycin Base [Erythromycin 3.5 gm TOP BID 14 Days #1 tube 03/29/19 Ophthalmic Ointment] Valacyclovir HCl [Valacyclovir] 1,000 mg PO TID 7 Days #21 tablet 03/29/19 predniSONE [Prednisone] 60 mg PO DAILY #18 tablet 03/29/19 - Allergies Allergies/Adverse Reactions: Allergies Allergy/AdvReac Type Severity Reaction Status Date / Time No Known Drug Allergies Allergy Verified 12/25/21 20:52 - Social History Does the pt smoke?: No Smoking Status: Never smoker Does the pt drink ETOH?: No Does the pt have substance abuse?: No - Immunizations Immunizations are current?: Yes - POLST Patient has POLST: No PD ED PE NORMAL - General General: Alert and oriented X 3, No acute distress, Well developed/nourished (Obese) - HEENT HEENT: Atraumatic, Moist mucous membranes, Pharynx benign - Neck Neck: Supple, no meningeal sign, No adenopathy - Cardiac Cardiac: RRR, No murmur - Respiratory Respiratory: No respiratory distress, Clear bilaterally - Abdomen Abdomen: Normal bowel sounds, Soft - Back Back: No CVA TTP, No spinal TTP - Derm Derm: Normal color, Warm and dry, No rash - Extremities Extremities: No deformity, No tenderness to palpate, Normal ROM s pain - Neuro Neuro: Alert and oriented X 3, 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 Outpatient confirmatory testing is Pending. Patient began having generalized fatigue myalgias and chills about 3 to 4 days ago. She is fully vaccinated for COVID-19 but does carry risk factors for poor outcome including asthma, hypertension and morbid obesity. She is interested in oral E each ear authorized antiviral therapy. Given medication history will give her molnupiravir. Her examination however is benign without hypoxia or respiratory distress. Cardiopulmonary auscultation is unremarkable. Patient advised to maintain quarantine and will be discharged home. She was requesting a taxi voucher but I discussed that one is not available tonight and in addition to that as she is COVID-positive would not be made available to her. She reports that she will likely wait in the waiting room overnight until family members are available to pick her up. Departure - Departure Disposition: 01 Home, Self Care Clinical Impression: COVID-19 Condition: Stable Record reviewed to determine appropriate education?: Yes Instructions: ED Viral Syndrome Ch Comments: Chace you are seen today in the emergency department because you tested positive for COVID-19 at home. You have had a few days of symptoms. Because you are fully vaccinated for COVID-19 you will likely do well with this infection. We are dispensing you a medication called Molnupiravir which is an oral antiviral medication that has emergency use authorization under the FDA for outpatient treatment of COVID-19. An outpatient COVID test is pending. I suspect it will be positive and we will notify you within the next 48 to 72 hours. In general you need to maintain quarantine. If you have any difficulty breathing severe chest pain or fainting episodes then please return immediately to the ER. Continue to take all your other prescribed medications as already advised
[2021-12-25] MEDS ORDERED: MOLNUPIRAVIR PREPACK PO STA (22:34)
[2021-12-25 22:42] VITALS: BP 138/80
== END 2021-12-25 22:41 | disposition home or self-care (01) ==
LOC: EDUNIT# → EDBD → ED 20:34
DX: U07.1 COVID-19 (principal)
CPT/HCPCS: 87635; 99282; 99283; J3490